=== PATIENT | female | born 1975 | race Caucasian/White ===

== ENCOUNTER 2016-12-21 13:15 | Emergency (ER) | payer SELFPAY ==
[2016-12-21] MEDS ORDERED: Sodium Chloride 0.9% 10 ML Syringe FLUSH PRN (13:31)
[2016-12-21] MEDS ORDERED: Aspirin 81 MG Tab.Chew PO ONE (13:31)
[2016-12-21] MEDS ORDERED: Sodium Chloride 0.9% 2.5 ML Syringe FLUSH PRN (13:31)
--- NOTE | 2016-12-21 13:45 | EDM.PDOC ---
ED HPI GENERAL MEDICAL PROBLEM - General Chief Complaint: Chest Pain Stated Complaint: CHEST PAIN Time Seen by Provider: 12/21/16 13:22 - History of Present Illness INITIAL COMMENTS - FREE TEXT/NARRATIVE: HISTORY AND PHYSICAL: History of present illness: The patient is a 41-year-old female was a history of hypothyroidism and depression for which she takes medications from her nurse emergency medical technician but does not see a family provider, and presents with right-sided chest pain near her armpit that radiated across to the left side while she was at rest. The patient says the pain was 7 out of 10 and it started on the right side going to the left but did not go to the lower chest or the abdomen and did not radiate to her arms or jaw. The patient states she's never had this before which concerned her but currently in the ER she has no chest pain. She's that she has some shortness of breath with it and seemed to have more pain with movement and taking a deep breath that is also gone away. She had no diaphoresis nausea lightheadedness or syncope and no abdominal complaints. She has no leg pain or swelling and has had no recent long trips. She has no social history such as tobacco use or oral contraception use and has a history of a bilateral tubal ligation. She's never had cardiac testing in the past and she has no significant family history. Patient says she's never had chest pain or shortness of breath with activities. She's been eating and drinking normally and has had no upper respiratory symptoms Review of systems: As per history of present illness and below otherwise all systems reviewed and negative. Past medical history: As per history of present illness and as reviewed below otherwise noncontributory. Surgical history: As per history of present illness and as reviewed below otherwise noncontributory. Social history: No reported history of drug or alcohol abuse. Family history: As per history of present illness and as reviewed below otherwise noncontributory. Physical exam: Gen.: Well-developed well-nourished female who is nontoxic and mildly overweight. Vital signs are stable HEENT: Atraumatic, normocephalic, negative for conjunctival pallor or scleral icterus, mucous membranes moist, throat clear, neck supple, nontender, trachea midline. Lungs: Clear to auscultation, breath sounds equal bilaterally, chest with some mild tenderness at the right upper chest wall area without defects deformities or crepitus Heart: S1S2, regular, negative for clicks, rubs, or JVD. Abdomen: Soft, nondistended, nontender. Negative for masses or hepatosplenomegaly. Negative for costovertebral tenderness. Pelvis: Stable nontender. Genitourinary: Deferred. Rectal: Deferred. Extremities: Atraumatic, negative for cords or calf pain. Neurovascular unremarkable. No pedal edema or leg asymmetry Neuro: Awake, alert, oriented. Cranial nerves II through XII unremarkable. Cerebellum unremarkable. Motor and sensory unremarkable throughout. Exam nonfocal. Diagnostics: EKG CBC CMP troponin d-dimer chest x-ray Therapeutics: IV O2 monitor aspirin I discussed with the patient all testing results which were within normal limits. When I came to discuss those results with her the patient was asleep and currently says she has actually no pain or issues. I advised follow-up in the clinic and reasons to return to the ED. Impression: Atypical chest pain stable resolved Definitive disposition and diagnosis as appropriate pending reevaluation and review of above. 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: Neurological History: Reports: Migraines Psychiatric History: Reports: Depression Endocrine/Metabolic History: Reports: Hypothyroidism - Past Surgical History HEENT Surgical History: Reports: Naso-Sinus Surgery Social & Family History - Family History Cardiac: Reports: Hypertension Psychiatric: Reports: Depression Endocrine/Metabolic: Reports: Hypothyroidism - Tobacco Use Smoking Status *Q: Never Smoker Second Hand Smoke Exposure: No - Alcohol Use Days Per Week of Alcohol Use: 0 - Recreational Drug Use Recreational Drug Use: No Drug Use in Last 12 Months: No ED ROS GENERAL - Review of Systems Review Of Systems: ROS reveals no pertinent complaints other than HPI. ED EXAM, GENERAL - Physical Exam Exam: See Below (see dictation) Course - Vital Signs Last Recorded V/S: Last Vital Signs Temp 36.5 C 12/21/16 13:15 Pulse 87 12/21/16 14:06 Resp 16 12/21/16 14:06 BP 126/64 12/21/16 14:06 Pulse Ox 98 12/21/16 14:06 - Orders/Labs/Meds Orders: Active Orders 24 hr Category Date Time Status Cardiac Monitoring [RC] . DIRECTED Care 12/21/16 13:30 Active EKG Documentation Completion [RC] STAT Care 12/21/16 13:30 Active Oxygen Therapy, ED [RC] ASDIRECTED Care 12/21/16 13:30 Active Pulse Oximetry [RC] ASDIRECTED Care 12/21/16 13:30 Active Sodium Chloride 0.9% [Saline Flush] Med 12/21/16 13:31 Active 10 ml FLUSH ASDIRECTED PRN Sodium Chloride 0.9% [Saline Flush] Med 12/21/16 13:31 Active 2.5 ml FLUSH ASDIRECTED PRN Saline Lock Insert [OM.PC] Stat Oth 12/21/16 13:30 Ordered Medication Orders Sodium Chloride (Saline Flush) 10 ml FLUSH ASDIRECTED PRN PRN Reason: Keep Vein Open Sodium Chloride (Saline Flush) 2.5 ml FLUSH ASDIRECTED PRN PRN Reason: Keep Vein Open Labs: Laboratory Tests 12/21/16 12/21/16 12/21/16 Range/Units 13:31 13:31 13:31 WBC 8.13 (4.0-11.0) K/uL RBC 4.28 L (4.30-5.90) M/uL Hgb 14.2 (12.0-16.0) g/dL Hct 40.9 (36.0-46.0) % MCV 95.6 (80.0-98.0) fL MCH 33.2 H (27.0-32.0) pg MCHC 34.7 (31.0-37.0) g/dL RDW Std Deviation 45.2 (28.0-62.0) fl RDW Coeff of Lukas 13 (11.0-15.0) % Plt Count 271 (150-400) K/uL MPV 10.40 (7.40-12.00) fL Neut % (Auto) 60.1 (48.0-80.0) % Lymph % (Auto) 30.5 (16.0-40.0) % [place] % (Auto) 5.7 (0.0-15.0) % Eos % (Auto) 3.2 (0.0-7.0) % Baso % (Auto) 0.5 (0.0-1.5) % Neut # (Auto) 4.9 (1.4-5.7) K/uL Lymph # (Auto) 2.5 H (0.6-2.4) K/uL [place] # (Auto) 0.5 (0.0-0.8) K/uL Eos # (Auto) 0.3 (0.0-0.7) K/uL Baso # (Auto) 0.0 (0.0-0.1) K/uL Nucleated RBC % 0.0 /100WBC Nucleated RBCs # 0 K/uL D-Dimer, Quantitative 0.27 (0.0-0.52) mg/LFEU Sodium 137 (136-146) mmol/L Potassium 4.0 (3.5-5.1) mmol/L Chloride 106 (98-110) mmol/L Carbon Dioxide 21 (21-31) mmol/L BUN 15 (6.0-23.0) mg/dL Creatinine 0.8 (0.6-1.5) mg/dL Est Cr Clr Drug Dosing 82.43 mL/min Estimated GFR (MDRD) > 60.0 ml/min Glucose 114 H (60-110) mg/dL Calcium 9.6 (8.8-10.8) mg/dL Total Bilirubin 0.3 (0.1-1.5) mg/dL AST 23 (5-40) IU/L ALT 31 (8-54) IU/L Alkaline Phosphatase 95 (40-150) Troponin I (0.0-0.29) NG/ML Total Protein 7.4 (6.0-8.0) g/dL Albumin 4.4 (3.5-5.0) g/dL Globulin 3.0 (2.0-3.5) g/dL Albumin/Globulin Ratio 1.5 (1.3-2.8) 12/21/16 Range/Units 13:31 WBC (4.0-11.0) K/uL RBC (4.30-5.90) M/uL Hgb (12.0-16.0) g/dL Hct (36.0-46.0) % MCV (80.0-98.0) fL MCH (27.0-32.0) pg MCHC (31.0-37.0) g/dL RDW Std Deviation (28.0-62.0) fl RDW Coeff of Lukas (11.0-15.0) % Plt Count (150-400) K/uL MPV (7.40-12.00) fL Neut % (Auto) (48.0-80.0) % Lymph % (Auto) (16.0-40.0) % [place] % (Auto) (0.0-15.0) % Eos % (Auto) (0.0-7.0) % Baso % (Auto) (0.0-1.5) % Neut # (Auto) (1.4-5.7) K/uL Lymph # (Auto) (0.6-2.4) K/uL [place] # (Auto) (0.0-0.8) K/uL Eos # (Auto) (0.0-0.7) K/uL Baso # (Auto) (0.0-0.1) K/uL Nucleated RBC % /100WBC Nucleated RBCs # K/uL D-Dimer, Quantitative (0.0-0.52) mg/LFEU Sodium (136-146) mmol/L Potassium (3.5-5.1) mmol/L Chloride (98-110) mmol/L Carbon Dioxide (21-31) mmol/L BUN (6.0-23.0) mg/dL Creatinine (0.6-1.5) mg/dL Est Cr Clr Drug Dosing mL/min Estimated GFR (MDRD) ml/min Glucose (60-110) mg/dL Calcium (8.8-10.8) mg/dL Total Bilirubin (0.1-1.5) mg/dL AST (5-40) IU/L ALT (8-54) IU/L Alkaline Phosphatase (40-150) Troponin I < 0.10 (0.0-0.29) NG/ML Total Protein (6.0-8.0) g/dL Albumin (3.5-5.0) g/dL Globulin (2.0-3.5) g/dL Albumin/Globulin Ratio (1.3-2.8) Meds: Medications Generic Name Dose Route Start Last Admin Trade Name Freq PRN Reason Stop Dose Admin Sodium Chloride 10 ml 12/21/16 13:31 Saline Flush FLUSH ASDIRECTED PRN Keep Vein Open Sodium Chloride 2.5 ml 12/21/16 13:31 Saline Flush FLUSH ASDIRECTED PRN Keep Vein Open Discontinued Medications Generic Name Dose Route Start Last Admin Trade Name Freq PRN Reason Stop Dose Admin Aspirin 324 mg 12/21/16 13:31 12/21/16 13:37 Aspirin PO 12/21/16 13:32 324 mg ONETIME ONE Administration Departure - Departure Time of Disposition: 14:35 Disposition: Home, Self-Care 01 Condition: Good Clinical Impression: Atypical chest pain - Discharge Information Referrals: PCP,None [Primary Care Provider] - Forms: ED Department Discharge Additional Instructions: The following information is given to patients seen in the emergency department who are being discharged to home. This information is to outline your options for follow-up care. We provide all patients seen in our emergency department with a follow-up referral. The need for follow-up, as well as the timing and circumstances, are variable depending upon the specifics of your emergency department visit. If you don't have a primary care physician on staff, we will provide you with a referral. We always advise you to contact your personal physician following an emergency department visit to inform them of the circumstance of the visit and for follow-up with them and/or the need for any referrals to a consulting specialist. The emergency department will also refer you to a specialist when appropriate. This referral assures that you have the opportunity for followup care with a specialist. All of these measure are taken in an effort to provide you with optimal care, which includes your followup. Under all circumstances we always encourage you to contact your private physician who remains a resource for coordinating your care. When calling for followup care, please make the office aware that this follow-up is from your recent emergency room visit. If for any reason you are refused follow-up, please contact the [facility] emergency department at and ask to speak to the emergency department charge nurse. [facility] Primary care- Internal Medicine and Family [place] [phone] Please contact the clinic for follow-up appointment as we discussed in the next few days and return to ER as needed and as discussed. Push hydration try to eat healthy meals and avoid caffeinated products. Rest and use ice or heat to the areas of discomfort if the pain returns and also [id number] Tylenol or ibuprofen. - My Orders Last 24 Hours: My Active Orders 12/21/16 13:30 Cardiac Monitoring [RC] . DIRECTED EKG Documentation Completion [RC] STAT Oxygen Therapy, ED [RC] ASDIRECTED Pulse Oximetry [RC] ASDIRECTED Saline Lock Insert [OM.PC] Stat 12/21/16 13:31 Sodium Chloride 0.9% [Saline Flush] 10 ml FLUSH ASDIRECTED PRN Sodium Chloride 0.9% [Saline Flush] 2.5 ml FLUSH ASDIRECTED PRN - Assessment/Plan Last 24 Hours: My Active Orders 12/21/16 13:30 Cardiac Monitoring [RC] . DIRECTED EKG Documentation Completion [RC] STAT Oxygen Therapy, ED [RC] ASDIRECTED Pulse Oximetry [RC] ASDIRECTED Saline Lock Insert [OM.PC] Stat 12/21/16 13:31 Sodium Chloride 0.9% [Saline Flush] 10 ml FLUSH ASDIRECTED PRN Sodium Chloride 0.9% [Saline Flush] 2.5 ml FLUSH ASDIRECTED PRN
[2016-12-21 14:04] LABS: CHLORIDE,CL 106 mmol/L (98-110); SODIUM,NA 137 mmol/L (136-146)
--- NOTE | 2016-12-21 14:07 | CR ---
EXAMINATION: Portable chest radiograph. HISTORY: Shortness of breath. FINDINGS: The trachea is midline. The cardiomediastinal silhouette is within normal limits. No pulmonary infil trates, effusions or pneumothorax. Osseous structures appear unremarkable. IMPRESSION: No acute cardiopulmonary process.
[2016-12-21 14:47] VITALS: BP 122/80
== END 2016-12-21 14:43 | disposition home or self-care (01) ==
LOC: MW.ED 13:15
DX: R07.89 Other chest pain (principal); F32.9 Major depressive disorder, single episode, unspecified; E03.9 Hypothyroidism, unspecified; Z98.890 Other specified postprocedural states; Z79.899 Other long term (current) drug therapy
CPT/HCPCS: 36415; 71010; 80053; 84484; 85025; 85379; 93005; 99285; A9270; 99282

== ENCOUNTER 2017-03-03 18:55 | Emergency (ER) | payer SELFPAY ==
--- NOTE | 2017-03-03 19:35 | EDM.PDOC ---
ED HPI GENERAL MEDICAL PROBLEM - General Chief Complaint: ENT Problem Stated Complaint: SORE THROAT Time Seen by Provider: 03/03/17 19:25 Source of Information: Reports: Patient History Limitations: Reports: No Limitations - History of Present Illness INITIAL COMMENTS - FREE TEXT/NARRATIVE: HISTORY AND PHYSICAL: History of present illness: Patient is a 41-year-old female who presents to the emergency room today with complaints of a sore throat, dry cough, subjective fever, chills and losing her voice. States her symptoms started approximately 3 days ago progressively getting worse and losing her voice this morning. She has not had a recorded temp but states I feel warm and has chills. Patient has a past medical history of hypothyroidism and depression. She reports both are managed and controlled well. Review of systems: As per history of present illness and below otherwise all systems reviewed and negative. Past medical history: As per history of present illness and as reviewed below otherwise noncontributory. Surgical history: As per history of present illness and as reviewed below otherwise noncontributory. Social history: No reported history of drug or alcohol abuse. Family history: As per history of present illness and as reviewed below otherwise noncontributory. Physical exam: Gen.: Well-developed and well-nourished 41-year-old female. Able to speak in full sentences without shortness of breath. Alert and oriented. HEENT: Atraumatic, normocephalic, pupils reactive, negative for conjunctival pallor or scleral icterus, mucous membranes moist, erythema noted to the posterior oropharynx without exudate, no lymphadenopathy, normal TMs bilaterally , neck supple, nontender, trachea midline. Lungs: Clear to auscultation, breath sounds equal bilaterally, chest nontender. Heart: S1S2, regular rate and rhythm Abdomen: Soft, nondistended, nontender. Negative for masses or hepatosplenomegaly. Negative for costovertebral tenderness. Pelvis: Stable nontender. Genitourinary: Deferred. Rectal: Deferred. Extremities: Atraumatic, moves all per self. Neurovascular unremarkable. Neuro: Awake, alert, oriented. Cranial nerves II through XII unremarkable. Cerebellum unremarkable. Motor and sensory unremarkable throughout. Exam nonfocal. Diagnostics: Rapid strep Therapeutics: [] Impression: Pharyngitis Plan: 1. These take your medications as prescribed, the Medrol Dose Juan José and Z-pack. 2. You have been prescribed Phenergan with codeine to help alleviate your throat discomfort and cough. As we discussed this medication can cause drowsiness and do not take it while needing to function at work or drive. Please save this for nighttime use. 3. Salt water gargles may be beneficial. Please do this up to 3 times daily. Please get a new toothbrush at the end of your antibiotic regiment. 4. Follow-up with your primary care provider in the next 1-2 days. Return to the ED as needed as discussed Definitive disposition and diagnosis as appropriate pending reevaluation and review of above. 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 throat Pain Score (Numeric/FACES): 3 - Related Data Allergies Allergy/AdvReac Type Severity Reaction Status Date / Time No Known Allergies Allergy Verified 03/03/17 19:18 Home Meds: Home Meds Levothyroxine 75 mcg PO ACBRK 01/04/14 [History] Escitalopram [Lexapro] 0.5 tab PO DAILY 10/19/14 [History] Past Medical History - Past Health History Medical/Surgical History: Denies Medical/Surgical History HEENT History: Reports: None Cardiovascular History: Reports: None Respiratory History: Reports: None Gastrointestinal History: Reports: Irritable Bowel Syndrome Genitourinary History: Reports: None 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: Musculoskeletal History: Reports: None Neurological History: Reports: Migraines Psychiatric History: Reports: Depression Endocrine/Metabolic History: Reports: Hypothyroidism Hematologic History: Reports: None Immunologic History: Reports: None Oncologic (Cancer) History: Reports: None Dermatologic History: Reports: None - Infectious Disease History Infectious Disease History: Reports: None - Past Surgical History HEENT Surgical History: Reports: Naso-Sinus Surgery Female Surgical History: Reports: Tubal Ligation Social & Family History - Family History Family Medical History: Noncontributory Cardiac: Reports: Hypertension Psychiatric: Reports: Depression Endocrine/Metabolic: Reports: Hypothyroidism - Tobacco Use Smoking Status *Q: Never Smoker Second Hand Smoke Exposure: No - Caffeine Use Caffeine Use: Reports: Soda - Alcohol Use Days Per Week of Alcohol Use: 0 - Recreational Drug Use Recreational Drug Use: No Drug Use in Last 12 Months: No ED ROS ENT - Review of Systems Review Of Systems: ROS reveals no pertinent complaints other than HPI. ED EXAM, ENT - Physical Exam Exam: See Below (See dictation) Course - Vital Signs Last Recorded V/S: Last Vital Signs Temp 36.8 C 03/03/17 19:05 Pulse 73 03/03/17 19:05 Resp 18 03/03/17 19:05 BP 142/79 H 03/03/17 19:05 Pulse Ox 98 03/03/17 19:05 - Orders/Labs/Meds Orders: Active Orders 24 hr Category Date Time Status CULTURE STREP A CONFIRMATION [] Stat Lab 03/03/17 19:43 Results STREP SCRN A RAPID W CULT CONF [RM] Stat Lab 03/03/17 19:43 Results Departure - Departure Time of Disposition: 20:16 Disposition: Home, Self-Care 01 Clinical Impression: Pharyngitis Qualifiers: Pharyngitis/tonsillitis etiology: unspecified etiology Qualified Code(s): J02.9 - Acute pharyngitis, unspecified - Discharge Information Referrals: PCP,None [Primary Care Provider] - Forms: ED Department Discharge Additional Instructions: My general discharge The following information is given to patients seen in the emergency department who are being discharged to home. This information is to outline your options for follow-up care. We provide all patients seen in our emergency department with a follow-up referral. The need for follow-up, as well as the timing and circumstances, are variable depending upon the specifics of your emergency department visit. If you don't have a primary care physician on staff, we will provide you with a referral. We always advise you to contact your personal physician following an emergency department visit to inform them of the circumstance of the visit and for follow-up with them and/or the need for any referrals to a consulting specialist. The emergency department will also refer you to a specialist when appropriate. This referral assures that you have the opportunity for follow-up care with a specialist. All of these measure are taken in an effort to provide you with optimal care, which includes your follow-up. Under all circumstances we always encourage you to contact your private physician who remains a resource for coordinating your care. When calling for follow-up care, please make the office aware that this follow-up is from your recent emergency room visit. If for any reason you are refused follow-up, please contact the [facility] Emergency Department at and asked to speak to the emergency department charge nurse. [facility] [address] [place] [id number] 1. These take your medications as prescribed, the Medrol Dose Juan José and Z-pack. 2. You have been prescribed Phenergan with codeine to help alleviate your throat discomfort and cough. As we discussed this medication can cause drowsiness and do not take it while needing to function at work or drive. Please save this for nighttime use. 3. Salt water gargles may be beneficial. Please do this up to 3 times daily. Please get a new toothbrush at the end of your antibiotic regiment. 4. Follow-up with your primary care provider in the next 1-2 days. Return to the ED as needed as discussed - My Orders Last 24 Hours: My Active Orders 03/03/17 19:43 CULTURE STREP A CONFIRMATION [RM] Stat STREP SCRN A RAPID W CULT CONF [RM] Stat - Assessment/Plan Last 24 Hours: My Active Orders 03/03/17 19:43 CULTURE STREP A CONFIRMATION [RM] Stat STREP SCRN A RAPID W CULT CONF [RM] Stat
[2017-03-03 20:26] VITALS: BP 137/74
== END 2017-03-03 20:28 | disposition home or self-care (01) ==
LOC: MW.ED 18:55
DX: J02.9 Acute pharyngitis, unspecified (principal); F32.9 Major depressive disorder, single episode, unspecified; E03.9 Hypothyroidism, unspecified; Z98.51 Tubal ligation status; Z98.890 Other specified postprocedural states; Z79.899 Other long term (current) drug therapy
CPT/HCPCS: 87081; 87880; 99282; 99283

== ENCOUNTER 2017-06-03 22:30 | Emergency (ER) | payer SELFPAY ==
[2017-06-03] MEDS ORDERED: Aspirin 81 MG Tab.Chew PO ONE (22:46)
[2017-06-03] MEDS ORDERED: Sodium Chloride 0.9% 10 ML Syringe FLUSH PRN (22:46)
[2017-06-03] MEDS ORDERED: Sodium Chloride 0.9% 2.5 ML Syringe FLUSH PRN (22:46)
--- NOTE | 2017-06-03 23:00 | EDM.PDOC ---
ED HPI GENERAL MEDICAL PROBLEM - General Chief Complaint: Chest Pain Stated Complaint: PT HAS CHEST PAINS Time Seen by Provider: 06/03/17 22:40 Source of Information: Reports: Patient History Limitations: Reports: No Limitations - History of Present Illness INITIAL COMMENTS - FREE TEXT/NARRATIVE: History of present illness: 41-year-old female presenting to emergency room by EMS for chest pain with no previous history of cardiopulmonary disease. Patient states that she began to have chest pain at approximately 1900 this evening. It was substernal without radiation worse when she pushed on her chest. She had no associated nausea, vomiting, or diaphoresis. The pain lasted for approximately 45 minutes and went away on its own. Since then she has had small sharp chest pains that last only a few seconds. She has never had similar symptoms in the past. She denies any history of cardiopulmonary disease. She was coughing some earlier today but denies sputum production. She denies any palpitations, shortness of breath, syncopal episodes, or focal neurologic deficits. She only takes medications for her "mood". Has never smoked and is a nondrinker. Review of systems: As per history of present illness and below otherwise all systems reviewed and negative. Past medical history: As per history of present illness and as reviewed below otherwise noncontributory. Surgical history: As per history of present illness and as reviewed below otherwise noncontributory. Social history: No reported history of drug or alcohol abuse. Family history: As per history of present illness and as reviewed below otherwise noncontributory. Physical exam: General: Well developed well nourished, Alert and Orientated x3, In no acute distress HEENT: Atraumatic, normocephalic, pupils reactive, negative for conjunctival pallor or scleral icterus, mucous membranes moist, throat clear, neck supple, nontender, trachea midline. Lungs: Clear to auscultation, breath sounds equal bilaterally, chest nontender. Heart: S1S2, regular, negative for clicks, rubs, or JVD. Chest pain is reproducible with deep palpation. Abdomen: Soft, nondistended, nontender. Negative for masses or hepatosplenomegaly. Negative for costovertebral tenderness. Pelvis: Stable nontender. Genitourinary: Deferred. Rectal: Deferred. Extremities: Atraumatic, negative for cords or calf pain. Neurovascular unremarkable. Neuro: Awake, alert, oriented. Cranial nerves II through XII unremarkable. Cerebellum unremarkable. Motor and sensory unremarkable throughout. Exam nonfocal. Diagnostics: CBC, CMP, troponin, UA - unremarkable EKG- NSR CXR- no acute intrathoracic abnormality Flu-Negative Therapeutics: IV NS 1 L Toradol 30mg Ativan 1 mg Impression: Atypical chest pain Costochondritis Patient continued to have some chest pain without radiation while she was here in the emergency department. 30 mg of Toradol did not relieve this pain but the pain was completely reproducible with palpation. Patient was given Ativan 1 mg IV which completely resolved her chest pain. Patient does have a history of anxiety/depression. May be a combination of costochondritis with anxiety related. All labs were normal including troponin. ECG was NSR with no signs of acute ischemia. I talked to the patient at length about atypical chest pain as well as follow-up with her primary care physician. She does have a scheduled appointment on the of this month. Instructed her to come in immediately to emergency department if she has any return of her symptoms. Definitive disposition and diagnosis as appropriate pending reevaluation and review of above Left Chest Pain Score (Numeric/FACES): 5 - Related Data Allergies Allergy/AdvReac Type Severity Reaction Status Date / Time No Known Allergies Allergy Verified 06/03/17 22:32 Home Meds: Home Meds Levothyroxine 75 mcg PO ACBRK 01/04/14 [History] Escitalopram [Lexapro] 0.5 tab PO DAILY 10/19/14 [History] Past Medical History - Past Health History Medical/Surgical History: Denies Medical/Surgical History HEENT History: Reports: None Cardiovascular History: Reports: None Respiratory History: Reports: None Gastrointestinal History: Reports: Irritable Bowel Syndrome Genitourinary History: Reports: None SKETCHER History: Reports: , Other (See Below) Musculoskeletal History: Reports: None Neurological History: Reports: Migraines Psychiatric History: Reports: Depression Endocrine/Metabolic History: Reports: Hypothyroidism Hematologic History: Reports: None Immunologic History: Reports: None Oncologic (Cancer) History: Reports: None Dermatologic History: Reports: None - Infectious Disease History Infectious Disease History: Reports: None - Past Surgical History HEENT Surgical History: Reports: Naso-Sinus Surgery Female Surgical History: Reports: Tubal Ligation Social & Family History - Family History Family Medical History: Noncontributory Cardiac: Reports: Hypertension Psychiatric: Reports: Depression Endocrine/Metabolic: Reports: Hypothyroidism - Tobacco Use Smoking Status *Q: Never Smoker Second Hand Smoke Exposure: No - Caffeine Use Caffeine Use: Reports: Soda - Alcohol Use Days Per Week of Alcohol Use: 0 - Recreational Drug Use Recreational Drug Use: No Drug Use in Last 12 Months: No ED ROS GENERAL - Review of Systems Review Of Systems: See Below ED EXAM, GENERAL - Physical Exam Exam: See Below Course - Vital Signs Last Recorded V/S: Last Vital Signs Temp 98.8 F 06/03/17 22:33 Pulse 90 06/04/17 00:57 Resp 18 06/03/17 22:33 BP 145/91 H 06/04/17 00:57 Pulse Ox 96 06/04/17 00:57 - Orders/Labs/Meds Orders: Active Orders 24 hr Category Date Time Status Cardiac Monitoring [RC] . DIRECTED Care 06/03/17 22:46 Active EKG Documentation Completion [RC] STAT Care 06/03/17 22:46 Active Oxygen Therapy [RC] ASDIRECTED Care 06/03/17 22:46 Active Pulse Oximetry [RC] ASDIRECTED Care 06/03/17 22:46 Active Chest 1V Frontal [CR] Stat Exams 06/03/17 22:46 Taken Sodium Chloride 0.9% [Saline Flush] Med 06/03/17 22:46 Active 10 ml FLUSH ASDIRECTED PRN Sodium Chloride 0.9% [Saline Flush] Med 06/03/17 22:46 Active 2.5 ml FLUSH ASDIRECTED PRN Saline Lock Insert [OM.PC] Stat Oth 06/03/17 22:46 Ordered Medication Orders Sodium Chloride (Saline Flush) 10 ml FLUSH ASDIRECTED PRN PRN Reason: Keep Vein Open Sodium Chloride (Saline Flush) 2.5 ml FLUSH ASDIRECTED PRN PRN Reason: Keep Vein Open Labs: Laboratory Tests 06/03/17 06/03/17 06/03/17 Range/Units 22:46 22:46 22:46 WBC 8.54 (4.0-11.0) K/uL RBC 3.94 L (4.30-5.90) M/uL Hgb 13.0 (12.0-16.0) g/dL Hct 37.7 (36.0-46.0) % MCV 95.7 (80.0-98.0) fL MCH 33.0 H (27.0-32.0) pg MCHC 34.5 (31.0-37.0) g/dL RDW Std Deviation 43.3 (28.0-62.0) fl RDW Coeff of Lukas 13 (11.0-15.0) % Plt Count 255 (150-400) K/uL MPV 9.80 (7.40-12.00) fL Neut % (Auto) 59.3 (48.0-80.0) % Lymph % (Auto) 30.3 (16.0-40.0) % [place] % (Auto) 5.6 (0.0-15.0) % Eos % (Auto) 4.3 (0.0-7.0) % Baso % (Auto) 0.5 (0.0-1.5) % Neut # (Auto) 5.1 (1.4-5.7) K/uL Lymph # (Auto) 2.6 H (0.6-2.4) K/uL [place] # (Auto) 0.5 (0.0-0.8) K/uL Eos # (Auto) 0.4 (0.0-0.7) K/uL Baso # (Auto) 0.0 (0.0-0.1) K/uL Nucleated RBC % 0.0 /100WBC Nucleated RBCs # 0 K/uL INR 1.01 (0.86-1.11) Sodium 139 (136-146) mmol/L Potassium 3.6 (3.5-5.1) mmol/L Chloride 108 (98-110) mmol/L Carbon Dioxide 21 (21-31) mmol/L BUN 13 (6.0-23.0) mg/dL Creatinine 0.7 (0.6-1.5) mg/dL Est Cr Clr Drug Dosing TNP Estimated GFR (MDRD) > 60.0 ml/min Glucose 119 H (60-110) mg/dL Calcium 9.4 (8.8-10.8) mg/dL Total Bilirubin 0.2 (0.1-1.5) mg/dL AST 18 (5-40) IU/L ALT 21 (8-54) IU/L Alkaline Phosphatase 85 (40-150) Troponin I < 0.10 (0.0-0.29) NG/ML Total Protein 6.8 (6.0-8.0) g/dL Albumin 4.0 (3.5-5.0) g/dL Globulin 2.8 (2.0-3.5) g/dL Albumin/Globulin Ratio 1.4 (1.3-2.8) Amylase 56 (10-90) U/L Lipase 49 (7-80) U/L Urine Color Urine Appearance Urine pH (5.0-8.0) Ur Specific Winters (1.001-1.035) Urine Protein (NEGATIVE) mg/dL Urine Glucose (UA) (NEGATIVE) mg/dL Urine Ketones (NEGATIVE) mg/dL Urine Occult Blood (NEGATIVE) Urine Nitrite (NEGATIVE) Urine Bilirubin (NEGATIVE) Urine Urobilinogen (<2.0) EU/dL Ur Leukocyte Esterase (NEGATIVE) Urine RBC (0-2/HPF) Urine WBC (0-5/HPF) Ur Epithelial Cells (NONE-FEW) Urine Bacteria (NEGATIVE) Urine Mucus (NONE-MOD) Urine HCG, Qual (NEGATIVE) 06/03/17 06/03/17 Range/Units 22:51 22:51 WBC (4.0-11.0) K/uL RBC (4.30-5.90) M/uL Hgb (12.0-16.0) g/dL Hct (36.0-46.0) % MCV (80.0-98.0) fL MCH (27.0-32.0) pg MCHC (31.0-37.0) g/dL RDW Std Deviation (28.0-62.0) fl RDW Coeff of Lukas (11.0-15.0) % Plt Count (150-400) K/uL MPV (7.40-12.00) fL Neut % (Auto) (48.0-80.0) % Lymph % (Auto) (16.0-40.0) % [place] % (Auto) (0.0-15.0) % Eos % (Auto) (0.0-7.0) % Baso % (Auto) (0.0-1.5) % Neut # (Auto) (1.4-5.7) K/uL Lymph # (Auto) (0.6-2.4) K/uL [place] # (Auto) (0.0-0.8) K/uL Eos # (Auto) (0.0-0.7) K/uL Baso # (Auto) (0.0-0.1) K/uL Nucleated RBC % /100WBC Nucleated RBCs # K/uL INR (0.86-1.11) Sodium (136-146) mmol/L Potassium (3.5-5.1) mmol/L Chloride (98-110) mmol/L Carbon Dioxide (21-31) mmol/L BUN (6.0-23.0) mg/dL Creatinine (0.6-1.5) mg/dL Est Cr Clr Drug Dosing Estimated GFR (MDRD) ml/min Glucose (60-110) mg/dL Calcium (8.8-10.8) mg/dL Total Bilirubin (0.1-1.5) mg/dL AST (5-40) IU/L ALT (8-54) IU/L Alkaline Phosphatase (40-150) Troponin I (0.0-0.29) NG/ML Total Protein (6.0-8.0) g/dL Albumin (3.5-5.0) g/dL Globulin (2.0-3.5) g/dL Albumin/Globulin Ratio (1.3-2.8) Amylase (10-90) U/L Lipase (7-80) U/L Urine Color YELLOW Urine Appearance CLEAR Urine pH 6.0 (5.0-8.0) Ur Specific Win[place] >= 1.030 (1.001-1.035) Urine Protein NEGATIVE (NEGATIVE) mg/dL Urine Glucose (UA) NEGATIVE (NEGATIVE) mg/dL Urine Ketones NEGATIVE (NEGATIVE) mg/dL Urine Occult Blood MODERATE (NEGATIVE) Urine Nitrite NEGATIVE (NEGATIVE) Urine Bilirubin NEGATIVE (NEGATIVE) Urine Urobilinogen 0.2 (<2.0) EU/dL Ur Leukocyte Esterase NEGATIVE (NEGATIVE) Urine RBC 1-4 (0-2/HPF) Urine WBC 0-2 (0-5/HPF) Ur Epithelial Cells FEW (NONE-FEW) Urine Bacteria FEW (NEGATIVE) Urine Mucus LIGHT (NONE-MOD) Urine HCG, Qual NEGATIVE (NEGATIVE) Meds: Medications Generic Name Dose Route Start Last Admin Trade Name Freq PRN Reason Stop Dose Admin Sodium Chloride 10 ml 06/03/17 22:46 Saline Flush FLUSH ASDIRECTED PRN Keep Vein Open Sodium Chloride 2.5 ml 06/03/17 22:46 Saline Flush FLUSH ASDIRECTED PRN Keep Vein Open Discontinued Medications Generic Name Dose Route Start Last Admin Trade Name Kwesi PRN Reason Stop Dose Admin Amoxicillin 500 mg 06/04/17 00:54 Amoxil 250 Mg/5 Ml Susp PO 06/04/17 00:55 NOW STA Aspirin 324 mg 06/03/17 22:46 Aspirin PO 06/03/17 22:47 ONETIME ONE Ketorolac Tromethamine 30 mg 06/03/17 23:18 06/03/17 23:24 Toradol IVPUSH 06/03/17 23:19 30 mg ONETIME ONE Administration Lorazepam 1 mg 06/04/17 00:11 06/04/17 00:41 Ativan IVPUSH 06/04/17 00:12 1 mg ONETIME ONE Administration Departure - Departure Time of Disposition: 01:05 Disposition: Home, Self-Care 01 Clinical Impression: Atypical chest pain, Costochondritis, acute - Discharge Information Referrals: PCP,None [Primary Care Provider] - Forms: ED Department Discharge - My Orders Last 24 Hours: My Active Orders 06/03/17 22:46 Cardiac Monitoring [RC] . DIRECTED EKG Documentation Completion [RC] STAT Oxygen Therapy [RC] ASDIRECTED Pulse Oximetry [RC] ASDIRECTED Chest 1V Frontal [CR] Stat Sodium Chloride 0.9% [Saline Flush] 10 ml FLUSH ASDIRECTED PRN Sodium Chloride 0.9% [Saline Flush] 2.5 ml FLUSH ASDIRECTED PRN Saline Lock Insert [OM.PC] Stat - Assessment/Plan Last 24 Hours: My Active Orders 06/03/17 22:46 Cardiac Monitoring [RC] . DIRECTED EKG Documentation Completion [RC] STAT Oxygen Therapy [RC] ASDIRECTED Pulse Oximetry [RC] ASDIRECTED Chest 1V Frontal [CR] Stat Sodium Chloride 0.9% [Saline Flush] 10 ml FLUSH ASDIRECTED PRN Sodium Chloride 0.9% [Saline Flush] 2.5 ml FLUSH ASDIRECTED PRN Saline Lock Insert [OM.PC] Stat
[2017-06-03 23:14] LABS: CHLORIDE,CL 108 mmol/L (98-110); SODIUM,NA 139 mmol/L (136-146)
[2017-06-03] MEDS ORDERED: Ketorolac 30 MG/ML SDV IVPUSH ONE (23:18)
[2017-06-04] MEDS ORDERED: LORazepam 2 MG/ML MDV IVPUSH ONE (00:11)
[2017-06-04 01:50] VITALS: BP 128/82
[2017-06-04] MEDS: Amoxicillin 250 MG/5 ML Susp 150 ML Bottle PO STA ×2 (02:13→02:16)
--- NOTE | 2017-06-04 19:49 | CR ---
EXAM DATE: 06/03/17 PATIENT'S AGE: 41 Patient: JESUS COLÓN Facility: [place], [place] Site . Site : 1975 Study: XRay Chest [id number] 10:57:10 PM Ordering Physician: Grant Thayer Final Report: INDICATION: chest pain CHEST, ONE VIEW An AP radiograph of the chest was performed. Comparison: 12/21/2016. The lungs appear clear and no pleural effusions are identified. There is mild elevation of the left diaphragm. The cardiomediastinal silhouette and pulmonary vasculature appear normal, as do the visualized bones. IMPRESSION: No acute intrathoracic abnormality identified. SANDRA CARBALLO MD [employer] [facility] Dictated by: Meek Carballo MD @ 06/03/2017 23:03:01 (Electronic Signature) Report Signed by Proxy. [facility] HOSPITALMeghan
== END 2017-06-04 01:47 | disposition home or self-care (01) ==
LOC: MW.ED 22:30
DX: M94.0 Chondrocostal junction syndrome [Tietze] (principal); F32.9 Major depressive disorder, single episode, unspecified; E03.9 Hypothyroidism, unspecified; Z79.899 Other long term (current) drug therapy
CPT/HCPCS: 36415; 71045; 80053; 81001; 81025; 82150; 83690; 84484; 85025; 85610; 87804; 93005; 96374; 96375; 99285; J1885; J2060; 99284

== ENCOUNTER 2017-06-30 22:33 | Emergency (ER) | payer SELFPAY ==
[2017-06-30] MEDS ORDERED: Ketorolac 60 MG/2 ML SDV IM ONE (22:45)
[2017-06-30 22:46] VITALS: BP 146/94
--- NOTE | 2017-06-30 22:48 | EDM.PDOC ---
ED HPI GENERAL MEDICAL PROBLEM - General Chief Complaint: Lower Extremity Injury/Pain Stated Complaint: RIGHT KNEE PAIN Time Seen by Provider: 06/30/17 22:39 - History of Present Illness INITIAL COMMENTS - FREE TEXT/NARRATIVE: HISTORY AND PHYSICAL: History of present illness: The patient is a 41-year-old female who presents with a four-day history of revealed right knee pain that started gradually and she does not recall any specific injury to the area. Patient has had no systemic complaints of fever chills chest pain or shortness of breath and denies any specific trauma to the area. She has no distal leg ankle or foot pain and no proximal thigh or hip pain. She says the bones of the knee do not hurt she has not noticed any swelling there she points to the medial aspect of the knee extending to the distal inner thigh area as the site of the pain. She has used [id number] ibuprofen but did not take any today Review of systems: As per history of present illness and below otherwise all systems reviewed and negative. Past medical history: As per history of present illness and as reviewed below otherwise noncontributory. Surgical history: As per history of present illness and as reviewed below otherwise noncontributory. Social history: No reported history of drug or alcohol abuse. Family history: As per history of present illness and as reviewed below otherwise noncontributory. Physical exam: Gen.: Well-developed overweight female who is nontoxic and vital signs have been reviewed by me HEENT: Atraumatic, normocephalic, negative for conjunctival pallor or scleral icterus, mucous membranes moist, throat clear, neck supple, nontender, trachea midline. Lungs: Clear to auscultation, breath sounds equal bilaterally, chest nontender. Heart: S1S2, regular rate and rhythm no overt murmurs Abdomen: Soft, nondistended, nontender. NABS. Pelvis: Stable nontender. No lateral hip tenderness on the right Genitourinary: Deferred. Rectal: Deferred. Extremities: Atraumatic full range of motion of all extremities and there are no palpable bony deformities most specifically in the right knee. At the right knee there is no joint effusion soft tissue swelling warmth or erythema. The patient has some mild tenderness to palpation of the medial thigh. The patient is able to flex and extend at the knee without deficits The patient has multiple varicosities on her legs. The legs are, negative for cords or calf pain. The right calf itself is not specifically tender nor is there tenderness in the popliteal fossa. Is no streaking ecchymosis or erythema in this region of her discomfort. Neurovascular unremarkable. Neuro: Awake, alert, oriented. Cranial nerves II through XII unremarkable. Cerebellum unremarkable. Motor and sensory unremarkable throughout. Exam nonfocal. Diagnostics: Right knee x-ray venous Doppler right leg Therapeutics: Toradol Charles and crutches I discussed with the patient the negative testing results for DVT and any bony abnormalities. I reinforced that this could be a phlebitis that's causing her pain because she has so many varicosities or it could be musculoskeletal secondary to insertion of the medial head of the quadriceps. I will recommend follow-up with her provider in the clinic, and she tells me she has an appointment on Sunday in our clinic. I recommended ice elevation and reduction of weightbearing and wearing an Charles bandage for support. I also discussed with her going forward getting support hose to prevent progression of her varicose veins and to prevent further pain with them Impression: Right medial soft tissue knee pain, musculoskeletal versus phlebitis Definitive disposition and diagnosis as appropriate pending reevaluation and review of above. right knee Pain Score (Numeric/FACES): 8 - Related Data Allergies Allergy/AdvReac Type Severity Reaction Status Date / Time No Known Allergies Allergy Verified 06/03/17 22:32 Home Meds: Home Meds Levothyroxine 75 mcg PO ACBRK 01/04/14 [History] Escitalopram [Lexapro] 0.5 tab PO DAILY 10/19/14 [History] Past Medical History - Past Health History Medical/Surgical History: Denies Medical/Surgical History HEENT History: Reports: None Cardiovascular History: Reports: None Respiratory History: Reports: None Gastrointestinal History: Reports: Irritable Bowel Syndrome Genitourinary History: Reports: None BEFORE SCHOOL History: Reports: Musculoskeletal History: Reports: None Neurological History: Reports: Migraines Psychiatric History: Reports: Depression Endocrine/Metabolic History: Reports: Hypothyroidism Hematologic History: Reports: None Immunologic History: Reports: None Oncologic (Cancer) History: Reports: None Dermatologic History: Reports: None - Infectious Disease History Infectious Disease History: Reports: None - Past Surgical History HEENT Surgical History: Reports: Naso-Sinus Surgery Female Surgical History: Reports: Tubal Ligation Social & Family History - Family History Family Medical History: Noncontributory Cardiac: Reports: Hypertension Psychiatric: Reports: Depression Endocrine/Metabolic: Reports: Hypothyroidism - Tobacco Use Smoking Status *Q: Never Smoker Second Hand Smoke Exposure: No - Caffeine Use Caffeine Use: Reports: Soda - Alcohol Use Days Per Week of Alcohol Use: 0 - Recreational Drug Use Recreational Drug Use: No Drug Use in Last 12 Months: No Review of Systems - Review of Systems Review Of Systems: ROS reveals no pertinent complaints other than HPI. ED EXAM, GENERAL - Physical Exam Exam: See Below (See dictation) Course - Vital Signs Last Recorded V/S: Last Vital Signs Temp 37.1 C 06/30/17 22:42 Pulse 96 06/30/17 22:42 Resp 22 H 06/30/17 22:42 BP 146/94 H 06/30/17 22:42 Pulse Ox 97 06/30/17 22:42 - Orders/Labs/Meds Orders: Active Orders 24 hr Category Date Time Status Knee 3V Rt [CR] Stat Exams 06/30/17 22:45 Taken Venous Doppler Lwr Ext Rt [US] Stat Exams 06/30/17 22:45 Taken DME for Discharge [COMM] Stat Oth 07/01/17 00:07 Ordered Meds: Medications Discontinued Medications Generic Name Dose Route Start Last Admin Trade Name Kwesi PRN Reason Stop Dose Admin Ketorolac Tromethamine 60 mg 06/30/17 22:45 06/30/17 22:54 Toradol IM 06/30/17 22:46 60 mg ONETIME ONE Administration Departure - Departure Time of Disposition: 00:09 Disposition: Home, Self-Care 01 Condition: Good Clinical Impression: Musculoskeletal pain of extremity, Phlebitis - Discharge Information Referrals: PCP,None [Primary Care Provider] - Forms: ED Department Discharge Additional Instructions: The following information is given to patients seen in the emergency department who are being discharged to home. This information is to outline your options for follow-up care. We provide all patients seen in our emergency department with a follow-up referral. The need for follow-up, as well as the timing and circumstances, are variable depending upon the specifics of your emergency department visit. If you don't have a primary care physician on staff, we will provide you with a referral. We always advise you to contact your personal physician following an emergency department visit to inform them of the circumstance of the visit and for follow-up with them and/or the need for any referrals to a consulting specialist. The emergency department will also refer you to a specialist when appropriate. This referral assures that you have the opportunity for followup care with a specialist. All of these measure are taken in an effort to provide you with optimal care, which includes your followup. Under all circumstances we always encourage you to contact your private physician who remains a resource for coordinating your care. When calling for followup care, please make the office aware that this follow-up is from your recent emergency room visit. If for any reason you are refused follow-up, please contact the [facility] emergency department at and ask to speak to the emergency department charge nurse. [facility] Primary care- Internal Medicine and Family [address] [address] Ice and elevate the leg as much as possible and try not to weight-bear. Use Charles bandage at all times for support until you're followed up but remove at bedtime. Please use medications as prescribed from [facility]. Please keep your appointment this week with her provider in the clinic for reevaluation and further care and return to ER as needed and as discussed You have been given Keflex, Ultram, and diclofenac from [facility] - My Orders Last 24 Hours: My Active Orders 06/30/17 22:45 Knee 3V Rt [CR] Stat Venous Doppler Lwr Ext Rt [US] Stat 07/01/17 00:07 DME for Discharge [COMM] Stat - Assessment/Plan Last 24 Hours: My Active Orders 06/30/17 22:45 Knee 3V Rt [CR] Stat Venous Doppler Lwr Ext Rt [US] Stat 07/01/17 00:07 DME for Discharge [COMM] Stat
--- NOTE | 2017-07-02 13:51 | CR ---
EXAM DATE: 06/30/17 PATIENT'S AGE: 41 Patient: JESUS COLÓN Facility: [place], [place] Site . Site : 1975 Study: XRay Knee Right [id number]/[id number]/2018 11:24:05 PM Ordering Physician: Lon Hardy Final Report: INDICATION: pain TECHNIQUE: Three views of the right knee COMPARISON: None FINDINGS: Bones: No fractures or bone lesions. Joint spaces: Unremarkable. Soft tissues: Unremarkable. IMPRESSION: No acute bony abnormality Dictated by Dio Cox MD @ 06/30/2017 11:32:17 PM Dictated by: Dio Cox MD @ 06/30/2017 23:32:23 (Electronic Signature) Report Signed by Proxy. JOSH
--- NOTE | 2017-07-02 13:52 | US ---
EXAM DATE: 06/30/17 PATIENT'S AGE: 41 Patient: JESUS COLÓN Facility: [place], [place] Site . Site : 1975 Study: US Extremity Venous RIGHT [id number] 11:44:41 PM Ordering Physician: Lon Hardy Final Report: INDICATION: RT KNEE PAIN TECHNIQUE: Ultrasound venous duplex lower right extremity. Compression venous exam was performed using rivas-scale, color Doppler, and spectral Doppler imaging. COMPARISON: None FINDINGS: Sonographic imaging demonstrates the right common femoral, deep femoral, superficial femoral, popliteal, posterior tibial and greater saphenous and the contralateral left common femoral veins to be fully compressible with normal color Doppler blood flow. IMPRESSION: No evidence of deep venous thrombosis within the right lower extremity Dictated by Dio Cox MD @ 07/01/2017 12:00:51 AM Dictated by: Dio Cox MD @ 07/01/2017 00:01:00 (Electronic Signature) Report Signed by Proxy. JOSH
== END 2017-07-01 00:27 | disposition home or self-care (01) ==
LOC: MW.ED 22:33
DX: I80.3 Phlebitis and thrombophlebitis of lower extremities, unspecified (principal); E03.9 Hypothyroidism, unspecified; F32.9 Major depressive disorder, single episode, unspecified; Z79.899 Other long term (current) drug therapy
CPT/HCPCS: 73562; 93971; 96372; 99284; J1885; 99283

== ENCOUNTER 2018-06-28 19:34 | Emergency (ER) | payer BC ==
[2018-06-28 19:47] VITALS: BP 134/93
--- NOTE | 2018-06-28 20:04 | EDM.PDOC ---
ED HPI GENERAL MEDICAL PROBLEM - General Chief Complaint: ENT Problem Stated Complaint: FLU Time Seen by Provider: 06/28/18 19:56 - History of Present Illness INITIAL COMMENTS - FREE TEXT/NARRATIVE: HISTORY AND PHYSICAL: History of present illness: The patient is a 42-year-old female with no pulmonary history and has had a bilateral tubal ligation and presents with complaints of 2-3 weeks of cough which is dry and hacking and chest discomfort with coughing but no chest pain without the cough, sore throat, body aches, sinus pain and drainage. Both of her children have had RSV and this patient did not get her influenza shot this year. She has not seen her provider as she says she has not been able to get in to get an appointment in the clinic. She's not having vomiting or diarrhea no shortness of breath no headache but she has had body aches and malaise. She is eating and drinking normally. Patient says she's been taking a generic antihistamine to help with the sinus drainage Review of systems: As per history of present illness and below otherwise all systems reviewed and negative. Past medical history: As per history of present illness and as reviewed below otherwise noncontributory. Surgical history: As per history of present illness and as reviewed below otherwise noncontributory. Social history: No reported history of drug or alcohol abuse. Family history: As per history of present illness and as reviewed below otherwise noncontributory. Physical exam: General: Well-developed well-nourished female who is nontoxic and mildly overweight. A dry cough is appreciated on my evaluation the ED. Her voice is normal without breathlessness but there is a nasal quality. HEENT: Atraumatic, normocephalic, pupils reactive, negative for conjunctival pallor or scleral icterus, mucous membranes moist, throat clear but there is some posterior oral pharyngeal erythema, there is no cervical adenopathy or nuchal rigidity there is no gross sinus tenderness,, neck supple, nontender, trachea midline. Turbinates are only slightly boggy bilaterally but there is some mild frontal and maxillary sinus tenderness on palpation more on the right Lungs: Clear to auscultation, breath sounds equal bilaterally, chest nontender. No wheezing or stridor Heart: S1S2, regular rate and rhythm no overt murmurs Abdomen: Soft, nondistended, nontender. NABS Pelvis: Deferred Genitourinary: Deferred. Rectal: Deferred. Extremities: Atraumatic, negative for cords or calf pain. Neurovascular unremarkable. Neuro: Awake, alert, oriented. Cranial nerves II through XII unremarkable. Cerebellum unremarkable. Motor and sensory unremarkable throughout. Exam nonfocal. Diagnostics: Chest x-ray rapid strep influenza Therapeutics: Spacer and teaching Impression: Bronchitis/persisting cough/sinusitis Definitive disposition and diagnosis as appropriate pending reevaluation and review of above. Throat Pain Score (Numeric/FACES): 6 - Related Data Allergies Allergy/AdvReac Type Severity Reaction Status Date / Time No Known Allergies Allergy Verified 06/28/18 19:44 Home Meds: Home Meds Levothyroxine 125 mcg PO DAILY 01/04/14 [History] Escitalopram [Lexapro] 10 tab PO DAILY 10/19/14 [History] Past Medical History - Past Health History Medical/Surgical History: Denies Medical/Surgical History HEENT History: Reports: None Cardiovascular History: Reports: None Respiratory History: Reports: None Gastrointestinal History: Reports: Irritable Bowel Syndrome Genitourinary History: Reports: None 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: Musculoskeletal History: Reports: None Neurological History: Reports: Migraines Psychiatric History: Reports: Depression Endocrine/Metabolic History: Reports: Hypothyroidism, Other (See Below) Other Endocrine/Metabolic History: Pre-diabetes Hematologic History: Reports: None Immunologic History: Reports: None Oncologic (Cancer) History: Reports: None Dermatologic History: Reports: None - Infectious Disease History Infectious Disease History: Reports: None - Past Surgical History Head Surgeries/Procedures: Reports: None HEENT Surgical History: Reports: Naso-Sinus Surgery GI Surgical History: Reports: None Female Surgical History: Reports: Tubal Ligation Endocrine Surgical History: Reports: None Neurological Surgical History: Reports: None Social & Family History - Family History Family Medical History: Noncontributory Cardiac: Reports: Hypertension Psychiatric: Reports: Depression Endocrine/Metabolic: Reports: Hypothyroidism - Tobacco Use Smoking Status *Q: Never Smoker Second Hand Smoke Exposure: No - Caffeine Use Caffeine Use: Reports: None - Recreational Drug Use Recreational Drug Use: No ED ROS GENERAL - Review of Systems Review Of Systems: ROS reveals no pertinent complaints other than HPI. ED EXAM, GENERAL - Physical Exam Exam: See Below (See dictation) Course - Vital Signs Last Recorded V/S: Last Vital Signs Temp 36.3 C 06/28/18 19:44 Pulse 103 H 06/28/18 19:44 Resp 18 06/28/18 19:44 BP 134/93 H 06/28/18 19:44 Pulse Ox 97 06/28/18 19:44 - Orders/Labs/Meds Orders: Active Orders 24 hr Category Date Time Status Communication Order [RC] STAT Care 06/28/18 20:01 Active Chest 2V [CR] Stat Exams 06/28/18 20:01 Taken CULTURE STREP A CONFIRMATION [RM] Stat Lab 06/28/18 20:05 Results STREP SCRN A RAPID W CULT CONF [RM] Stat Lab 06/28/18 20:05 Results Departure - Departure Time of Disposition: 20:46 Disposition: Home, Self-Care 01 Condition: Good Clinical Impression: Persistent cough, Bronchitis Sinusitis Qualifiers: Sinusitis location: unspecified location Chronicity: unspecified Qualified Code (s): J32.9 - Chronic sinusitis, unspecified - Discharge Information Referrals: PCP,Unknown [Primary Care Provider] - Forms: ED Department Discharge Additional Instructions: The following information is given to patients seen in the emergency department who are being discharged to home. This information is to outline your options for follow-up care. We provide all patients seen in our emergency department with a follow-up referral. The need for follow-up, as well as the timing and circumstances, are variable depending upon the specifics of your emergency department visit. If you don't have a primary care physician on staff, we will provide you with a referral. We always advise you to contact your personal physician following an emergency department visit to inform them of the circumstance of the visit and for follow-up with them and/or the need for any referrals to a consulting specialist. The emergency department will also refer you to a specialist when appropriate. This referral assures that you have the opportunity for followup care with a specialist. All of these measure are taken in an effort to provide you with optimal care, which includes your followup. Under all circumstances we always encourage you to contact your private physician who remains a resource for coordinating your care. When calling for followup care, please make the office aware that this follow-up is from your recent emergency room visit. If for any reason you are refused follow-up, please contact the [facility] emergency department at and ask to speak to the emergency department charge nurse. [facility] Primary care- Internal Medicine and Family [place] [id number] [place] [id number] Push hydration and use [id number] Tylenol or ibuprofen/Motrin for fevers and pain. Please use a decongestant/antihistamine such as Ashlyn or Claritin or Benadryl or any generic version to help dry the fluid out of your sinuses. Please take all medication as prescribed. Please call and try to schedule a follow-up appointment in the clinic with one of her providers or your provider and return to ER as needed and as discussed. - My Orders Last 24 Hours: My Active Orders 06/28/18 20:01 Communication Order [RC] STAT Chest 2V [CR] Stat 06/28/18 20:05 CULTURE STREP A CONFIRMATION [RM] Stat STREP SCRN A RAPID W CULT CONF [RM] Stat - Assessment/Plan Last 24 Hours: My Active Orders 06/28/18 20:01 Communication Order [RC] STAT Chest 2V [CR] Stat 06/28/18 20:05 CULTURE STREP A CONFIRMATION [RM] Stat STREP SCRN A RAPID W CULT CONF [RM] Stat
--- NOTE | 2018-06-28 20:47 | CR ---
INDICATION: Chest pain, shortness of breath TECHNIQUE: Chest radiograph 2 views COMPARISON: None FINDINGS: Mediastinum: The mediastinum is normal in appearance. The heart silhouette is normal in size and morphology. Lung: Both lungs are unremarkable in appearance. No sign of pleural effusion seen. No pneumothorax is identified. Musculoskeletal: Unremarkable for age. IMPRESSION: 1. No acute cardiopulmonary disease is seen. Dictated by: Heath Vee MD @ 06/28/2018 20:46:06 (Electronically Signed)
[2018-06-28] MEDS ORDERED: predniSONE 20 MG Tab PO ONE (20:49)
== END 2018-06-28 21:05 | disposition home or self-care (01) ==
LOC: MW.ED 19:34
DX: J40 Bronchitis, not specified as acute or chronic (principal); J32.9 Chronic sinusitis, unspecified; F32.9 Major depressive disorder, single episode, unspecified; E03.9 Hypothyroidism, unspecified; Z79.899 Other long term (current) drug therapy
CPT/HCPCS: 71046; 87081; 87804; 87880; 99283; A9270

== ENCOUNTER 2018-07-30 06:31 | Emergency (ER) | payer BC ==
--- NOTE | 2018-07-30 07:00 | EDM.PDOC ---
ED HPI GENERAL MEDICAL PROBLEM - General Chief Complaint: Headache Stated Complaint: MIGRAINE FOR 3 DAYS Time Seen by Provider: 07/30/18 06:55 Source of Information: Reports: Patient History Limitations: Reports: No Limitations - History of Present Illness INITIAL COMMENTS - FREE TEXT/NARRATIVE: History of present illness: []Patient has had 4 days of atypical migraine headache. She states she is nauseated but not vomiting. She denies any fevers, chills, sinus congestion or pain, ear pain sore throat or neck pain. She has used Excedrin Migraine without relief each usually works for her. Review of systems: As per history of present illness and below otherwise all systems reviewed and negative. Past medical history: As per history of present illness and as reviewed below otherwise noncontributory. Surgical history: As per history of present illness and as reviewed below otherwise noncontributory. Social history: No reported history of drug or alcohol abuse. Family history: As per history of present illness and as reviewed below otherwise noncontributory. Physical exam: General: Well developed, well nourished in NAD HEENT: Atraumatic, normocephalic, pupils reactive, negative for conjunctival pallor or scleral icterus, mucous membranes moist, throat clear, neck supple, nontender, trachea midline. Lungs: Clear to auscultation, breath sounds equal bilaterally, chest nontender. Heart: S1S2, regular, negative for clicks, rubs, or JVD. Abdomen: NABS, Soft, nondistended, nontender. Negative for masses or hepatosplenomegaly. Negative for costovertebral tenderness. Pelvis: Stable nontender. Genitourinary: Deferred. Rectal: Deferred. Extremities: Atraumatic, negative for cords or calf pain. Neurovascular unremarkable. Neuro: Awake, alert, oriented. Cranial nerves II through XII unremarkable. Cerebellum unremarkable. Motor and sensory unremarkable throughout. Exam nonfocal. Skin:warm and dry Diagnostics: None Therapeutics: Toradol IM ED Course: Improved Impression: Migraine headache Prescriptions: Zofran, Plan: Follow-up with primary care return if symptoms worsen or change. Definitive disposition and diagnosis as appropriate pending reevaluation and review of above. Headache Pain Score (Numeric/FACES): 7 - Related Data Allergies Allergy/AdvReac Type Severity Reaction Status Date / Time No Known Allergies Allergy Verified 07/30/18 06:42 Home Meds: Home Meds Levothyroxine 125 mcg PO DAILY 01/04/14 [History] Escitalopram [Lexapro] 10 tab PO DAILY 10/19/14 [History] Ondansetron HCl [Zofran] 4 mg PO Q4HR #12 tablet 07/30/18 [Rx] Past Medical History - Past Health History Medical/Surgical History: Denies Medical/Surgical History HEENT History: Reports: None Cardiovascular History: Reports: None Respiratory History: Reports: None Gastrointestinal History: Reports: Irritable Bowel Syndrome Genitourinary History: Reports: 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 History: Reports: None Neurological History: Reports: Migraines Psychiatric History: Reports: Depression Endocrine/Metabolic History: Reports: Hypothyroidism, Other (See Below) Other Endocrine/Metabolic History: Pre-diabetes Hematologic History: Reports: None Immunologic History: Reports: None Oncologic (Cancer) History: Reports: None Dermatologic History: Reports: None - Infectious Disease History Infectious Disease History: Reports: None - Past Surgical History Head Surgeries/Procedures: Reports: None HEENT Surgical History: Reports: Naso-Sinus Surgery GI Surgical History: Reports: None Female Surgical History: Reports: Tubal Ligation Endocrine Surgical History: Reports: None Neurological Surgical History: Reports: None Social & Family History - Family History Family Medical History: Noncontributory Cardiac: Reports: Hypertension Psychiatric: Reports: Depression Endocrine/Metabolic: Reports: Hypothyroidism - Tobacco Use Smoking Status *Q: Never Smoker - Caffeine Use Caffeine Use: Reports: None - Recreational Drug Use Recreational Drug Use: No ED ROS GENERAL - Review of Systems Review Of Systems: ROS reveals no pertinent complaints other than HPI. (The history of present illness) - Physical Exam Exam: See Below (See history of present illness) Course - Vital Signs Last Recorded V/S: Last Vital Signs Temp 96.3 F 07/30/18 06:40 Pulse 73 07/30/18 06:40 Resp BP 145/82 H 07/30/18 06:40 Pulse Ox 97 07/30/18 06:40 - Orders/Labs/Meds Meds: Medications Discontinued Medications Generic Name Dose Route Start Last Admin Trade Name Freq PRN Reason Stop Dose Admin Ketorolac Tromethamine 60 mg 07/30/18 07:15 07/30/18 07:29 Toradol IM 07/30/18 07:16 60 mg ONETIME ONE Administration Ondansetron HCl 4 mg 07/30/18 07:15 07/30/18 07:30 Zofran Odt PO 07/30/18 07:16 4 mg ONETIME ONE Administration Departure - Departure Time of Disposition: 08:17 Disposition: Home, Self-Care 01 Condition: Good Clinical Impression: Migraine headache Qualifiers: Migraine type: unspecified Status migrainosus presence: without status migrainosus Intractability: not intractable Qualified Code(s): G43.909 - Migraine, unspecified, not intractable, without status migrainosus - Discharge Information *PRESCRIPTION DRUG MONITORING PROGRAM REVIEWED*: No *COPY OF PRESCRIPTION DRUG MONITORING REPORT IN PATIENT ISIDRA: No Prescriptions: Ondansetron HCl [Zofran] 4 mg PO Q4HR #12 tablet Referrals: PCP,None [Primary Care Provider] - Forms: ED Department Discharge Additional Instructions: The following information is given to patients seen in the emergency department who are being discharged to home. This information is to outline your options for follow-up care. We provide all patients seen in our emergency department with a follow-up referral. The need for follow-up, as well as the timing and circumstances, are variable depending upon the specifics of your emergency department visit. If you don't have a primary care physician on staff, we will provide you with a referral. We always advise you to contact your personal physician following an emergency department visit to inform them of the circumstance of the visit and for follow-up with them and/or the need for any referrals to a consulting specialist. The emergency department will also refer you to a specialist when appropriate. This referral assures that you have the opportunity for follow-up care with a specialist. All of these measure are taken in an effort to provide you with optimal care, which includes your follow-up. Under all circumstances we always encourage you to contact your private physician who remains a resource for coordinating your care. When calling for follow-up care, please make the office aware that this follow-up is from your recent emergency room visit. If for any reason you are refused follow-up, please contact the [facility] Emergency Department at and asked to speak to the emergency department charge nurse. [facility] Primary Care [address] [place] [id number]
[2018-07-30] MEDS ORDERED: Ketorolac 60 MG/2 ML SDV IM ONE (07:15)
[2018-07-30] MEDS ORDERED: Ondansetron 4 MG Tab.DIS PO ONE (07:15)
[2018-07-30 08:41] VITALS: BP 161/93
== END 2018-07-30 08:42 | disposition home or self-care (01) ==
LOC: MW.ED 06:31
DX: G43.909 Migraine, unspecified, not intractable, without status migrainosus (principal); E03.9 Hypothyroidism, unspecified; F32.9 Major depressive disorder, single episode, unspecified; Z79.899 Other long term (current) drug therapy
CPT/HCPCS: 96372; 99283; A9270; J1885

== ENCOUNTER 2018-12-21 03:29 | Emergency (ER) | payer BC ==
[2018-12-21] MEDS ORDERED: Sodium Chloride 0.9% 1,000 ML IV ONE (03:42)
[2018-12-21] MEDS ORDERED: Ketorolac 30 MG/ML SDV IVPUSH ONE (03:42)
--- NOTE | 2018-12-21 03:45 | EDM.PDOC ---
ED HPI GENERAL MEDICAL PROBLEM - General Chief Complaint: Abdominal Pain Stated Complaint: RIGHT SIDE ABDOMINAL PAIN Time Seen by Provider: 12/21/18 03:42 - History of Present Illness INITIAL COMMENTS - FREE TEXT/NARRATIVE: HISTORY AND PHYSICAL: History of present illness: Patient's 43-year-old white female who presents with a concern of chest pain and right upper quadrant abdominal pain chest pain is been off and on over the last several days without associated shortness of breath nausea vomiting or palpitations patient denies fever chills denies trauma states that she did have an inflamed gallbladder with one of her pregnancies. Review of systems: As per history of present illness and below otherwise all systems reviewed and negative. Past medical history: As per history of present illness and as reviewed below otherwise noncontributory. Surgical history: As per history of present illness and as reviewed below otherwise noncontributory. Social history: No reported history of drug or alcohol abuse. Family history: As per history of present illness and as reviewed below otherwise noncontributory. Physical exam: HEENT: Atraumatic, normocephalic, pupils reactive, negative for conjunctival pallor or scleral icterus, mucous membranes moist, throat clear, neck supple, nontender, trachea midline. Lungs: Clear to auscultation, breath sounds equal bilaterally, chest nontender. Heart: S1S2, regular, negative for clicks, rubs, or JVD. Abdomen: Soft, nondistended, mild tenderness in the right upper quadrant deep palpation no rebound no guarding. Negative for masses or hepatosplenomegaly. Negative for costovertebral tenderness. Pelvis: Stable nontender. Genitourinary: Deferred. Rectal: Deferred. Extremities: Atraumatic, negative for cords or calf pain. Neurovascular unremarkable. Neuro: Awake, alert, oriented. Cranial nerves II through XII unremarkable. Cerebellum unremarkable. Motor and sensory unremarkable throughout. Exam nonfocal. Diagnostics: CBC CMP and lipase troponin chest x-ray EKG ultrasound right upper quadrant urinalysis UCG Therapeutics: Saline 1 L bolus Toradol 30 mg IV Impression: #1 atypical chest pain #2 right-sided abdominal pain Definitive disposition and diagnosis as appropriate pending reevaluation and review of above. right middle back;chest;LUQ abdomen Pain Score (Numeric/FACES): 2 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 History: Reports: None 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: Musculoskeletal History: Reports: None Neurological History: Reports: Migraines Psychiatric History: Reports: Depression Endocrine/Metabolic History: Reports: Hypothyroidism, Other (See Below) Other Endocrine/Metabolic History: Pre-diabetes Hematologic History: Reports: None Immunologic History: Reports: None Oncologic (Cancer) History: Reports: None Dermatologic History: Reports: None - Infectious Disease History Infectious Disease History: Reports: None - Past Surgical History Head Surgeries/Procedures: Reports: None HEENT Surgical History: Reports: Naso-Sinus Surgery GI Surgical History: Reports: None Female Surgical History: Reports: Tubal Ligation Endocrine Surgical History: Reports: None Neurological Surgical History: Reports: None Social & Family History - Family History Family Medical History: Noncontributory Cardiac: Reports: Hypertension Psychiatric: Reports: Depression Endocrine/Metabolic: Reports: Hypothyroidism - Caffeine Use Caffeine Use: Reports: None ED ROS GENERAL - Review of Systems Review Of Systems: ROS reveals no pertinent complaints other than HPI. ED EXAM, GENERAL - Physical Exam Exam: See Below (The dictation) Course - Vital Signs Last Recorded V/S: Last Vital Signs Temp 36.6 C 12/21/18 05:37 Pulse 55 L 12/21/18 05:37 Resp 16 12/21/18 05:37 BP 153/84 H 12/21/18 05:37 Pulse Ox 97 12/21/18 05:37 - Orders/Labs/Meds Orders: Active Orders 24 hr Category Date Time Status Cardiac Monitoring [RC] . DIRECTED Care 12/21/18 03:42 Active EKG Documentation Completion [RC] STAT Care 12/21/18 03:42 Active Saline Lock Insert [OM.PC] Stat Oth 12/21/18 03:42 Ordered Labs: Laboratory Tests 12/21/18 12/21/18 12/21/18 Range/Units 03:44 03:47 04:04 WBC 10.48 (4.0-11.0) K/uL RBC 4.15 L (4.30-5.90) M/uL Hgb 13.5 (12.0-16.0) g/dL Hct 40.0 (36.0-46.0) % MCV 96.4 (80.0-98.0) fL MCH 32.5 H (27.0-32.0) pg MCHC 33.8 (31.0-37.0) g/dL RDW Std Deviation 44.4 (28.0-62.0) fl RDW Coeff of Lukas 13 (11.0-15.0) % Plt Count 285 (150-400) K/uL MPV 9.90 (7.40-12.00) fL Neut % (Auto) 52.7 (48.0-80.0) % Lymph % (Auto) 37.3 (16.0-40.0) % [place] % (Auto) 6.5 (0.0-15.0) % Eos % (Auto) 3.1 (0.0-7.0) % Baso % (Auto) 0.4 (0.0-1.5) % Neut # (Auto) 5.5 (1.4-5.7) K/uL Lymph # (Auto) 3.9 H (0.6-2.4) K/uL [place] # (Auto) 0.7 (0.0-0.8) K/uL Eos # (Auto) 0.3 (0.0-0.7) K/uL Baso # (Auto) 0.0 (0.0-0.1) K/uL Nucleated RBC % 0.0 /100WBC Nucleated RBCs # 0 K/uL INR Sodium (136-145) mmol/L Potassium (3.5-5.1) mmol/L Chloride (98-107) mmol/L Carbon Dioxide (21.0-32.0) mmol/L BUN (7.0-18.0) mg/dL Creatinine (0.6-1.0) mg/dL Est Cr Clr Drug Dosing mL/min Estimated GFR (MDRD) ml/min Glucose (74-106) mg/dL Calcium (8.5-10.1) mg/dL Total Bilirubin (0.2-1.0) mg/dL AST (15-37) IU/L ALT (14-63) IU/L Alkaline Phosphatase (46-116) U/L Troponin I (0.000-0.056) ng/mL Total Protein (6.4-8.2) g/dL Albumin (3.4-5.0) g/dL Globulin (2.6-4.0) g/dL Albumin/Globulin Ratio (0.9-1.6) Lipase (73-393) U/L Urine Color YELLOW Urine Appearance CLEAR Urine pH 6.0 (5.0-8.0) Ur Specific [place] >= 1.030 (1.001-1.035) Urine Protein NEGATIVE (NEGATIVE) mg/dL Urine Glucose (UA) NEGATIVE (NEGATIVE) mg/dL Urine Ketones NEGATIVE (NEGATIVE) mg/dL Urine Occult Blood NEGATIVE (NEGATIVE) Urine Nitrite NEGATIVE (NEGATIVE) Urine Bilirubin NEGATIVE (NEGATIVE) Urine Urobilinogen 0.2 (<2.0) EU/dL Ur Leukocyte Esterase NEGATIVE (NEGATIVE) Urine HCG, Qual NEGATIVE (NEGATIVE) 12/21/18 12/21/18 Range/Units 04:04 04:04 WBC (4.0-11.0) K/uL RBC (4.30-5.90) M/uL Hgb (12.0-16.0) g/dL Hct (36.0-46.0) % MCV (80.0-98.0) fL MCH (27.0-32.0) pg MCHC (31.0-37.0) g/dL RDW Std Deviation (28.0-62.0) fl RDW Coeff of Lukas (11.0-15.0) % Plt Count (150-400) K/uL MPV (7.40-12.00) fL Neut % (Auto) (48.0-80.0) % Lymph % (Auto) (16.0-40.0) % [place] % (Auto) (0.0-15.0) % Eos % (Auto) (0.0-7.0) % Baso % (Auto) (0.0-1.5) % Neut # (Auto) (1.4-5.7) K/uL Lymph # (Auto) (0.6-2.4) K/uL [place] # (Auto) (0.0-0.8) K/uL Eos # (Auto) (0.0-0.7) K/uL Baso # (Auto) (0.0-0.1) K/uL Nucleated RBC % /100WBC Nucleated RBCs # K/uL INR 0.95 Sodium 138 (136-145) mmol/L Potassium 4.0 (3.5-5.1) mmol/L Chloride 105 (98-107) mmol/L Carbon Dioxide 23.2 (21.0-32.0) mmol/L BUN 23 H (7.0-18.0) mg/dL Creatinine 0.7 (0.6-1.0) mg/dL Est Cr Clr Drug Dosing 92.29 mL/min Estimated GFR (MDRD) > 60.0 ml/min Glucose 117 H (74-106) mg/dL Calcium 9.4 (8.5-10.1) mg/dL Total Bilirubin 0.2 (0.2-1.0) mg/dL AST 14 L (15-37) IU/L ALT 28 (14-63) IU/L Alkaline Phosphatase 90 (46-116) U/L Troponin I < 0.050 (0.000-0.056) ng/mL Total Protein 7.1 (6.4-8.2) g/dL Albumin 3.8 (3.4-5.0) g/dL Globulin 3.3 (2.6-4.0) g/dL Albumin/Globulin Ratio 1.2 (0.9-1.6) Lipase 225 (73-393) U/L Urine Color Urine Appearance Urine pH (5.0-8.0) Ur Specific [place] (1.001-1.035) Urine Protein (NEGATIVE) mg/dL Urine Glucose (UA) (NEGATIVE) mg/dL Urine Ketones (NEGATIVE) mg/dL Urine Occult Blood (NEGATIVE) Urine Nitrite (NEGATIVE) Urine Bilirubin (NEGATIVE) Urine Urobilinogen (<2.0) EU/dL Ur Leukocyte Esterase (NEGATIVE) Urine HCG, Qual (NEGATIVE) Meds: Medications Discontinued Medications Generic Name Dose Route Start Last Admin Trade Name Freq PRN Reason Stop Dose Admin Sodium Chloride 1,000 mls @ 999 mls/hr 12/21/18 03:42 12/21/18 04:04 Normal Saline IV 12/21/18 04:42 999 mls/hr BOLUS ONE Administration Ketorolac Tromethamine 30 mg 12/21/18 03:42 12/21/18 04:16 Toradol IVPUSH 12/21/18 03:43 30 mg ONETIME ONE Administration Departure - Departure Time of Disposition: 06:40 Disposition: Home, Self-Care 01 Condition: Good Clinical Impression: Abdominal pain, Atypical chest pain - Discharge Information Referrals: PCP,None [Primary Care Provider] - Forms: ED Department Discharge Additional Instructions: The following information is given to patients seen in the emergency department who are being discharged to home. This information is to outline your options for follow-up care. We provide all patients seen in our emergency department with a follow-up referral. The need for follow-up, as well as the timing and circumstances, are variable depending upon the specifics of your emergency department visit. If you don't have a primary care physician on staff, we will provide you with a referral. We always advise you to contact your personal physician following an emergency department visit to inform them of the circumstance of the visit and for follow-up with them and/or the need for any referrals to a consulting specialist. The emergency department will also refer you to a specialist when appropriate. This referral assures that you have the opportunity for followup care with a specialist. All of these measure are taken in an effort to provide you with optimal care, which includes your followup. Under all circumstances we always encourage you to contact your private physician who remains a resource for coordinating your care. When calling for followup care, please make the office aware that this follow-up is from your recent emergency room visit. If for any reason you are refused follow-up, please contact the [facility] emergency department at and asked to speak to the emergency department charge nurse. [facility] Specialty [facility] - General Surgery Professional Building [address] [place] [address], [address] [place] [address] Follow-up primary medical doctor as discussed return as needed as discussed call for appointment general surgery above - My Orders Last 24 Hours: My Active Orders 12/21/18 03:42 Cardiac Monitoring [RC] . DIRECTED EKG Documentation Completion [RC] STAT Saline Lock Insert [OM.PC] Stat - Assessment/Plan Last 24 Hours: My Active Orders 12/21/18 03:42 Cardiac Monitoring [RC] . DIRECTED EKG Documentation Completion [RC] STAT Saline Lock Insert [OM.PC] Stat
[2018-12-21 04:35] LABS: BLOOD UREA NITROGEN,BUN 23 mg/dL (7.0-18.0); CARBON DIOXIDE,CO2 23.2 mmol/L (21.0-32.0); CHLORIDE,CL 105 mmol/L (98-107); GLUCOSE RANDOM 117 mg/dL (74-106); LIPASE 225 U/L (73-393); SODIUM,NA 138 mmol/L (136-145)
--- NOTE | 2018-12-21 06:18 | CR ---
INDICATION: Chest pain TECHNIQUE: Chest 1 views COMPARISON: Chest x-ray 06/28/2018 FINDINGS: Cardiovascular and mediastinum: Upper normal heart size for the portable technique with mild tortuosity of the thoracic aorta. Lungs and pleural spaces: Low lung volumes without pleural effusion or pneumothorax. Minimal patchy and linear basilar atelectasis. Bones and soft tissues: No significant findings. IMPRESSION: Hypoaeration with minimal patchy and linear basilar atelectasis. Dictated by Vadim Porter MD @ Dec 21 2018 6:16AM Signed by Dr. Vadim Porter @ Dec 21 2018 6:17AM
--- NOTE | 2018-12-21 06:37 | US ---
HISTORY: Abdominal pain. TECHNIQUE: Ultrasound of the abdomen. COMPARISON: Abdominal ultrasound 09/07/2014. FINDINGS: Diffusely increased echogenicity of the liver. No liver lesions. No intrahepatic bile duct dilation. No cholelithiasis, gallbladder wall thickening, or pericholecystic fluid. Common duct measures 5 mm in caliber, within normal limits. Pancreas is mostly obscured. Right kidney measures 11.9 cm long axis. Normal renal parenchymal thickness and echogenicity. No renal mass. No hydronephrosis. IMPRESSION: Fatty infiltration of the liver. Dictated by Ken Calle MD @ Dec 21 2018 6:32AM Signed by Dr. Ken Calle @ Dec 21 2018 6:35AM
[2018-12-21 07:03] VITALS: BP 117/71; PULSE 61
== END 2018-12-21 07:03 | disposition home or self-care (01) ==
LOC: MW.ED 03:29
DX: R07.89 Other chest pain (principal); E03.9 Hypothyroidism, unspecified; F32.9 Major depressive disorder, single episode, unspecified; Z79.899 Other long term (current) drug therapy
CPT/HCPCS: 71045; 76705; 80053; 81003; 81025; 83690; 84484; 85025; 85610; 93005; 96361; 96374; 99285; J1885; J7040; 99284

== ENCOUNTER 2020-03-27 12:26 | Emergency (ER) | payer SELFPAY ==
[2020-03-27] MEDS ORDERED: Sodium Chloride 0.9% 1,000 ML IV ONE (13:03)
[2020-03-27] MEDS ORDERED: Sodium Chloride 0.9% 2.5 ML Syringe FLUSH PRN (13:03)
[2020-03-27] MEDS ORDERED: Ketorolac 15 MG/ML SDV IVPUSH ONE (13:03)
[2020-03-27] MEDS ORDERED: Famotidine 20 MG/2 ML SDV IVPUSH ONE (13:03)
[2020-03-27] MEDS ORDERED: Ondansetron 4 MG/2 ML SDV IVPUSH ONE (13:03)
[2020-03-27] MEDS ORDERED: Sodium Chloride 0.9% 10 ML Syringe FLUSH PRN (13:03)
--- NOTE | 2020-03-27 13:40 | EDM.PDOC ---
ED HPI GENERAL MEDICAL PROBLEM - General Chief Complaint: Respiratory Problem Stated Complaint: BODY PAIN, COUGHING, SOB Time Seen by Provider: 03/27/20 12:54 Source of Information: Reports: Patient History Limitations: Reports: No Limitations - History of Present Illness INITIAL COMMENTS - FREE TEXT/NARRATIVE: History of present illness: [Patient is 44-year-old female who presents with flulike symptoms for the last couple of days. Denies any known exposure to Covid. Complains of body aches and chills, cough, sore throat. Been taking [id number] remedies to help with her symptoms. Denies any major chronic medical problems. Takes levothyroxine and Escitalopram. Denies chest pain. Denies current shortness of breath. Denies any dysuria or hematuria. No vomiting or diarrhea. No belly pain.] Review of systems: As per history of present illness and below otherwise all systems reviewed and negative. Past medical history: As per history of present illness and as reviewed below otherwise noncontributory. Surgical history: As per history of present illness and as reviewed below otherwise noncontributory. Social history: No reported history of drug or alcohol abuse. Family history: As per history of present illness and as reviewed below otherwise noncontributory. Physical exam: General: Awake, alert, no acute distress, A&O X3. HEENT: Atraumatic, normocephalic, pupils reactive, negative for conjunctival pallor or scleral icterus, mucous membranes moist, throat clear, neck supple, nontender, trachea midline. Lungs: Clear to auscultation, breath sounds equal bilaterally, chest nontender. Heart: tachycardic, normal S1S2, no JVD. Abdomen: Soft, nondistended, nontender. Negative for masses or hepatosplenomegaly. Pelvis: Stable nontender. Genitourinary: Deferred. Rectal: Deferred. Extremities: Atraumatic, no edema, Neurovascular unremarkable. Neuro: Motor and sensory grossly intact throughout. Exam nonfocal. Diagnostics: [] Therapeutics: [] Impression: [] Plan: [] Definitive disposition and diagnosis as appropriate pending reevaluation and review of above. 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 History: Reports: None Neurological History: Reports: Migraines Psychiatric History: Reports: Depression Endocrine/Metabolic History: Reports: Hypothyroidism, Other (See Below) Other Endocrine/Metabolic History: Pre-diabetes Hematologic History: Reports: None Immunologic History: Reports: None Oncologic (Cancer) History: Reports: None Dermatologic History: Reports: None - Infectious Disease History Infectious Disease History: Reports: None - Past Surgical History Head Surgeries/Procedures: Reports: None HEENT Surgical History: Reports: Naso-Sinus Surgery GI Surgical History: Reports: None Female Surgical History: Reports: Tubal Ligation Endocrine Surgical History: Reports: None Neurological Surgical History: Reports: None Social & Family History - Family History Family Medical History: Noncontributory Cardiac: Reports: Hypertension Psychiatric: Reports: Depression Endocrine/Metabolic: Reports: Hypothyroidism - Caffeine Use Caffeine Use: Reports: None ED ROS GENERAL - Review of Systems Review Of Systems: Comprehensive ROS is negative, except as noted in HPI. ED EXAM, GENERAL - Physical Exam Exam: See Below (see h and p) #1 Interpretation EKG Date: 03/27/20 Time: 13:19 Rhythm: NSR Rate (Beats/Min): 110 [place]: Normal P-Wave: Present QRS: Normal ST-T: Normal QT: Normal EKG Interpretation Comments: sinus tach Course - Vital Signs Text/Narrative:: Patient is Covid positive. She reports feeling improvement after getting IV fluids and Toradol. Remainder of her labs are reassuring, troponin negative, EKG nonischemic, I agreed to send her home with a prescription for a Z-Juan José because of some equivocal findings on her chest x-ray, they are likely viral in nature but I believe the pros outweigh the cons with giving her a Z-Juan José antibiotic. I encouraged outpatient follow-up, told her to isolate at home and use Tylenol and ibuprofen and other [id number] remedies as needed and directed to manage her symptoms. Return precautions also provided. Otherwise she was well-appearing and stable at discharge. - Orders/Labs/Meds Orders: Active Orders 24 hr Category Date Time Status EKG Documentation Completion [RC] STAT Care 03/27/20 13:04 Active CORONAVIRUS COVID-19 PCR PHL Stat Lab 03/27/20 13:50 Received Sodium Chloride 0.9% [Saline Flush] Med 03/27/20 13:03 Active 10 ml FLUSH ASDIRECTED PRN Sodium Chloride 0.9% [Saline Flush] Med 03/27/20 13:03 Active 2.5 ml FLUSH ASDIRECTED PRN Isolation [COMM] Routine Oth 03/27/20 13:04 Active Saline Lock Insert [OM.PC] Stat Oth 03/27/20 13:03 Ordered Medication Orders Sodium Chloride (Saline Flush) 10 ml FLUSH ASDIRECTED PRN PRN Reason: Keep Vein Open Sodium Chloride (Saline Flush) 2.5 ml FLUSH ASDIRECTED PRN PRN Reason: Keep Vein Open Labs: Laboratory Tests 03/27/20 03/27/20 03/27/20 Range/Units 13:50 14:06 14:06 WBC 8.86 (4.0-11.0) K/uL RBC 4.19 L (4.30-5.90) M/uL Hgb 13.8 (12.0-16.0) g/dL Hct 41.3 (36.0-46.0) % MCV 98.6 H (80.0-98.0) fL MCH 32.9 H (27.0-32.0) pg MCHC 33.4 (31.0-37.0) g/dL RDW Std Deviation 46.3 (28.0-62.0) fl RDW Coeff of Lukas 13 (11.0-15.0) % Plt Count 245 (150-400) K/uL MPV 9.90 (7.40-12.00) fL Neut % (Auto) 75.2 (48.0-80.0) % Lymph % (Auto) 15.5 L (16.0-40.0) % [place] % (Auto) 7.7 (0.0-15.0) % Eos % (Auto) 1.4 (0.0-7.0) % Baso % (Auto) 0.2 (0.0-1.5) % Neut # (Auto) 6.7 H (1.4-5.7) K/uL Lymph # (Auto) 1.4 (0.6-2.4) K/uL [place] # (Auto) 0.7 (0.0-0.8) K/uL Eos # (Auto) 0.1 (0.0-0.7) K/uL Baso # (Auto) 0.0 (0.0-0.1) K/uL Nucleated RBC % 0.0 /100WBC Nucleated RBCs # 0 K/uL Sodium 136 (136-145) mmol/L Potassium 3.6 (3.5-5.1) mmol/L Chloride 103 (98-107) mmol/L Carbon Dioxide 24.1 (21.0-32.0) mmol/L BUN 11 (7.0-18.0) mg/dL Creatinine 0.7 (0.6-1.0) mg/dL Est Cr Clr Drug Dosing TNP Estimated GFR (MDRD) > 60.0 ml/min Glucose 101 (74-106) mg/dL Calcium 8.4 L (8.5-10.1) mg/dL Total Bilirubin 0.3 (0.2-1.0) mg/dL AST 42 H (15-37) IU/L ALT 66 H (14-63) IU/L Alkaline Phosphatase 94 (46-116) U/L Troponin I < 0.050 (0.000-0.056) ng/mL Total Protein 7.1 (6.4-8.2) g/dL Albumin 3.6 (3.4-5.0) g/dL Globulin 3.5 (2.6-4.0) g/dL Albumin/Globulin Ratio 1.0 (0.9-1.6) HCG, Qual (NEG) SARS CoV-2 RNA Rapid JESSE POSITIVE H (NEGATIVE) 03/27/20 Range/Units 14:06 WBC (4.0-11.0) K/uL RBC (4.30-5.90) M/uL Hgb (12.0-16.0) g/dL Hct (36.0-46.0) % MCV (80.0-98.0) fL MCH (27.0-32.0) pg MCHC (31.0-37.0) g/dL RDW Std Deviation (28.0-62.0) fl RDW Coeff of Lukas (11.0-15.0) % Plt Count (150-400) K/uL MPV (7.40-12.00) fL Neut % (Auto) (48.0-80.0) % Lymph % (Auto) (16.0-40.0) % [place] % (Auto) (0.0-15.0) % Eos % (Auto) (0.0-7.0) % Baso % (Auto) (0.0-1.5) % Neut # (Auto) (1.4-5.7) K/uL Lymph # (Auto) (0.6-2.4) K/uL [place] # (Auto) (0.0-0.8) K/uL Eos # (Auto) (0.0-0.7) K/uL Baso # (Auto) (0.0-0.1) K/uL Nucleated RBC % /100WBC Nucleated RBCs # K/uL Sodium (136-145) mmol/L Potassium (3.5-5.1) mmol/L Chloride (98-107) mmol/L Carbon Dioxide (21.0-32.0) mmol/L BUN (7.0-18.0) mg/dL Creatinine (0.6-1.0) mg/dL Est Cr Clr Drug Dosing Estimated GFR (MDRD) ml/min Glucose (74-106) mg/dL Calcium (8.5-10.1) mg/dL Total Bilirubin (0.2-1.0) mg/dL AST (15-37) IU/L ALT (14-63) IU/L Alkaline Phosphatase (46-116) U/L Troponin I (0.000-0.056) ng/mL Total Protein (6.4-8.2) g/dL Albumin (3.4-5.0) g/dL Globulin (2.6-4.0) g/dL Albumin/Globulin Ratio (0.9-1.6) HCG, Qual NEGATIVE (NEG) SARS CoV-2 RNA Rapid JESSE (NEGATIVE) Meds: Medications Generic Name Dose Route Start Last Admin Trade Name Freq PRN Reason Stop Dose Admin Sodium Chloride 10 ml 03/27/20 13:03 Saline Flush FLUSH ASDIRECTED PRN Keep Vein Open Sodium Chloride 2.5 ml 03/27/20 13:03 Saline Flush FLUSH ASDIRECTED PRN Keep Vein Open Discontinued Medications Generic Name Dose Route Start Last Admin Trade Name Kwesi PRN Reason Stop Dose Admin Famotidine 20 mg 03/27/20 13:03 03/27/20 13:47 Pepcid IVPUSH 03/27/20 13:04 20 mg ONETIME ONE Administration Sodium Chloride 1,000 mls @ 999 mls/hr 03/27/20 13:03 03/27/20 13:44 Normal Saline IV 03/27/20 14:03 999 mls/hr .Bolus ONE Administration Ketorolac Tromethamine 15 mg 03/27/20 13:03 03/27/20 13:46 Toradol IVPUSH 03/27/20 13:04 15 mg ONETIME ONE Administration Ondansetron HCl 4 mg 03/27/20 13:03 03/27/20 13:45 Zofran IVPUSH 03/27/20 13:04 4 mg ONETIME ONE Administration Departure - Departure Time of Disposition: 15:00 Disposition: Home, Self-Care 01 Condition: Good Clinical Impression: COVID-19 - Discharge Information Instructions: COVID-19 Frequently Asked Questions Referrals: PCP,None [Primary Care Provider] - Forms: ED Department Discharge Additional Instructions: Isolate at home. Take all medications as prescribed. Return to the ER with any new or worsening symptoms. Follow-up with your primary care doctor. The following information is given to patients seen in the emergency department who are being discharged to home. This information is to outline your options for follow-up care. We provide all patients seen in our emergency department with a follow-up referral. The need for follow-up, as well as the timing and circumstances, are variable depending upon the specifics of your emergency department visit. If you don't have a primary care physician on staff, we will provide you with a referral. We always advise you to contact your personal physician following an emergency department visit to inform them of the circumstance of the visit and for follow-up with them and/or the need for any referrals to a consulting specialist. The emergency department will also refer you to a specialist when appropriate. This referral assures that you have the opportunity for follow-up care with a specialist. All of these measure are taken in an effort to provide you with optimal care, which includes your follow-up. Under all circumstances we always encourage you to contact your private physician who remains a resource for coordinating your care. When calling for follow-up care, please make the office aware that this follow-up is from your recent emergency room visit. If for any reason you are refused follow-up, please contact the [facility] Emergency Department at and asked to speak to the emergency department charge nurse. - My Orders Last 24 Hours: My Active Orders 03/27/20 13:03 Sodium Chloride 0.9% [Saline Flush] 10 ml FLUSH ASDIRECTED PRN Sodium Chloride 0.9% [Saline Flush] 2.5 ml FLUSH ASDIRECTED PRN Saline Lock Insert [OM.PC] Stat 03/27/20 13:04 EKG Documentation Completion [RC] STAT Isolation [COMM] Routine 03/27/20 13:50 CORONAVIRUS COVID-19 PCR PHL Stat - Assessment/Plan Last 24 Hours: My Active Orders 03/27/20 13:03 Sodium Chloride 0.9% [Saline Flush] 10 ml FLUSH ASDIRECTED PRN Sodium Chloride 0.9% [Saline Flush] 2.5 ml FLUSH ASDIRECTED PRN Saline Lock Insert [OM.PC] Stat 03/27/20 13:04 EKG Documentation Completion [RC] STAT Isolation [COMM] Routine 03/27/20 13:50 CORONAVIRUS COVID-19 PCR PHL Stat
--- NOTE | 2020-03-27 14:33 | CR ---
INDICATION: Cough. COMPARISON: 21 December 2018. TECHNIQUE: One view. FINDINGS: Subtle fluffy indistinct airspace opacity at the left base. This is less pronounced than before Pulmonary vascularity and cardiomediastinal silhouette are normal. IMPRESSION : Subtle airspace opacity left base. Recurrent or residual pneumonia should be assessed clinically. Two-view chest versus CT recommended for further characterization. Dictated by Jessee Huntley MD @ Mar 27 2020 2:29PM Signed by Dr. Jessee Huntley @ Mar 27 2020 2:31PM
[2020-03-27 14:48] LABS: BLOOD UREA NITROGEN,BUN 11 mg/dL (7.0-18.0); CARBON DIOXIDE,CO2 24.1 mmol/L (21.0-32.0); CHLORIDE,CL 103 mmol/L (98-107); GLUCOSE RANDOM 101 mg/dL (74-106); POTASSIUM,K 3.6 mmol/L (3.5-5.1); SODIUM,NA 136 mmol/L (136-145)
[2020-03-27 15:18] VITALS: BP 142/118; PULSE 100
== END 2020-03-27 15:15 | disposition home or self-care (01) ==
LOC: MW.ED 12:26
DX: U07.1 COVID-19 (principal); E03.9 Hypothyroidism, unspecified; F32.9 Major depressive disorder, single episode, unspecified; Z98.51 Tubal ligation status; Z79.899 Other long term (current) drug therapy
CPT/HCPCS: 36415; 71045; 80053; 84484; 84703; 85025; 87635; 87804; 93005; 96374; 96375; 99284; J1885; J2405; J3490; J7030; 93010; 99283; U0002

== ENCOUNTER 2020-04-28 20:06 | Emergency (ER) | payer SELFPAY ==
[2020-04-28] MEDS ORDERED: Sodium Chloride 0.9% 2.5 ML Syringe FLUSH PRN (20:31)
[2020-04-28] MEDS ORDERED: Sodium Chloride 0.9% 10 ML Syringe FLUSH PRN (20:31)
[2020-04-28] MEDS ORDERED: Morphine 4 MG/ML Syringe IVPUSH ONE (20:34)
[2020-04-28] MEDS ORDERED: Lactated Ringers 1,000 ML IV ONE (20:34)
[2020-04-28] MEDS ORDERED: Ondansetron 4 MG/2 ML SDV IVPUSH ONE (20:34)
--- NOTE | 2020-04-28 20:44 | EDM.PDOC ---
ED HPI GENERAL MEDICAL PROBLEM - General Chief Complaint: Abdominal Pain Stated Complaint: CHEST PAIN Time Seen by Provider: 04/28/20 20:31 Source of Information: Reports: Patient History Limitations: Reports: No Limitations - History of Present Illness INITIAL COMMENTS - FREE TEXT/NARRATIVE: 44 yo F history of IBS, biliary colic, bilateral tubal ligation presents with abdominal pain that started 4 hours ago. Pain is localized to the right lower quadrant, sharp, severe, radiates to the left lower quadrant, constant, no alleviating or exacerbating factors. She denies fever, chills, chest pain, shortness of breath. She admits to dysuria, nausea, anorexia. Her menses ended yesterday. ROS: A 10-point review of systems, other than pertinent positives and negatives as stated per HPI, is otherwise negative Past medical history: No additional pertinent history Past Surgical history: No additional pertinent history Social history: No additional pertinent history Family history: No additional pertinent history PHYSICAL EXAM General: AOx4, GCS = 15, moderate distress HEENT: dry mucous membrane Neck: supple, no meningismus, no Kernig or Brudzinski Cardiac: S1S2 RRR Respiratory: CTAB, no crackles or rales, no wheezing Abdomen: Soft, tenderness to lower abd diffusely. No rebound or guarding, nondistended, no pulsatile mass. Back: nontender Musculoskeletal: NVI distally, no deformity Neuro: No focal deficits, CN 2 - 12 WNL. Lower R abdominal pain Pain Score (Numeric/FACES): 8 - Related Data Allergies Allergy/AdvReac Type Severity Reaction Status Date / Time No Known Allergies Allergy Verified 04/28/20 20:27 Home Meds: Home Meds Levothyroxine 125 mcg PO DAILY 01/04/14 [History] Escitalopram [Lexapro] 20 tab PO DAILY 10/19/14 [History] Dicyclomine [Bentyl] 10 mg PO QIDACANDBED #12 cap 04/28/20 [Rx] Past Medical History - Past Health History Medical/Surgical History: Denies Medical/Surgical History HEENT History: Reports: None Cardiovascular History: Reports: None Respiratory History: Reports: None Gastrointestinal History: Reports: Irritable Bowel Syndrome Genitourinary History: Reports: None [employer] History: Reports: Musculoskeletal History: Reports: None Neurological History: Reports: Migraines Psychiatric History: Reports: Depression Endocrine/Metabolic History: Reports: Hypothyroidism, Other (See Below) Other Endocrine/Metabolic History: Pre-diabetes Hematologic History: Reports: None Immunologic History: Reports: None Oncologic (Cancer) History: Reports: None Dermatologic History: Reports: None - Infectious Disease History Infectious Disease History: Reports: Chicken Pox - Past Surgical History Head Surgeries/Procedures: Reports: None HEENT Surgical History: Reports: Naso-Sinus Surgery Other HEENT Surgeries/Procedures: sinus surgery GI Surgical History: Reports: None Female Surgical History: Reports: Tubal Ligation Endocrine Surgical History: Reports: None Neurological Surgical History: Reports: None Social & Family History - Family History Family Medical History: No Pertinent Family History Cardiac: Reports: Hypertension Psychiatric: Reports: Depression Endocrine/Metabolic: Reports: Hypothyroidism - Caffeine Use Caffeine Use: Reports: Soda - Recreational Drug Use Recreational Drug Use: No ED ROS GENERAL - Review of Systems Review Of Systems: See Below (see dictation) ED EXAM, GENERAL - Physical Exam Exam: See Below (see dictation) #1 Interpretation EKG Interpretation Comments: Heart rate = 77, Afib, normal sinus rhythm, normal QRS interval, no STEMI. EKG and rhythm strip interpreted by me at 2033 Course - Vital Signs Last Recorded V/S: Last Vital Signs Temp 96.5 F L 04/28/20 22:21 Pulse 61 04/28/20 22:21 Resp 18 04/28/20 22:21 BP 150/89 H 04/28/20 22:21 Pulse Ox 97 04/28/20 22:21 - Orders/Labs/Meds Orders: Active Orders 24 hr Category Date Time Status Cardiac Monitoring [RC] . DIRECTED Care 04/28/20 20:31 Active EKG Documentation Completion [RC] STAT Care 04/28/20 20:32 Active Pulse Oximetry [RC] ASDIRECTED Care 04/28/20 20:31 Active Sodium Chloride 0.9% [Saline Flush] Med 04/28/20 20:31 Active 10 ml FLUSH ASDIRECTED PRN Sodium Chloride 0.9% [Saline Flush] Med 04/28/20 20:31 Active 2.5 ml FLUSH ASDIRECTED PRN Saline Lock Insert [OM.PC] Stat Oth 04/28/20 20:31 Ordered Medication Orders Sodium Chloride (Saline Flush) 10 ml FLUSH ASDIRECTED PRN PRN Reason: Keep Vein Open Sodium Chloride (Saline Flush) 2.5 ml FLUSH ASDIRECTED PRN PRN Reason: Keep Vein Open Labs: Laboratory Tests 04/28/20 04/28/20 04/28/20 Range/Units 20:30 20:30 20:55 WBC 8.55 (4.0-11.0) K/uL RBC 4.16 L (4.30-5.90) M/uL Hgb 13.8 (12.0-16.0) g/dL Hct 40.7 (36.0-46.0) % MCV 97.8 (80.0-98.0) fL MCH 33.2 H (27.0-32.0) pg MCHC 33.9 (31.0-37.0) g/dL RDW Std Deviation 45.2 (28.0-62.0) fl RDW Coeff of Lukas 13 (11.0-15.0) % Plt Count 289 (150-400) K/uL MPV 10.40 (7.40-12.00) fL Neut % (Auto) 50.6 (48.0-80.0) % Lymph % (Auto) 37.0 (16.0-40.0) % [place] % (Auto) 8.0 (0.0-15.0) % Eos % (Auto) 3.9 (0.0-7.0) % Baso % (Auto) 0.5 (0.0-1.5) % Neut # (Auto) 4.3 (1.4-5.7) K/uL Lymph # (Auto) 3.2 H (0.6-2.4) K/uL [place] # (Auto) 0.7 (0.0-0.8) K/uL Eos # (Auto) 0.3 (0.0-0.7) K/uL Baso # (Auto) 0.0 (0.0-0.1) K/uL Nucleated RBC % 0.0 /100WBC Nucleated RBCs # 0 K/uL INR Sodium (136-145) mmol/L Potassium (3.5-5.1) mmol/L Chloride (98-107) mmol/L Carbon Dioxide (21.0-32.0) mmol/L BUN (7.0-18.0) mg/dL Creatinine (0.6-1.0) mg/dL Est Cr Clr Drug Dosing mL/min Estimated GFR (MDRD) ml/min Glucose (74-106) mg/dL Calcium (8.5-10.1) mg/dL Magnesium (1.8-2.4) mg/dL Total Bilirubin (0.2-1.0) mg/dL AST (15-37) IU/L ALT (14-63) IU/L Alkaline Phosphatase (46-116) U/L Troponin I (0.000-0.056) ng/mL Total Protein (6.4-8.2) g/dL Albumin (3.4-5.0) g/dL Globulin (2.6-4.0) g/dL Albumin/Globulin Ratio (0.9-1.6) Lipase (73-393) U/L Urine Color YELLOW Urine Appearance HAZY Urine pH 6.0 (5.0-8.0) Ur Specific [place] >= 1.030 (1.001-1.035) Urine Protein NEGATIVE (NEGATIVE) mg/dL Urine Glucose (UA) NEGATIVE (NEGATIVE) mg/dL Urine Ketones NEGATIVE (NEGATIVE) mg/dL Urine Occult Blood SMALL H (NEGATIVE) Urine Nitrite NEGATIVE (NEGATIVE) Urine Bilirubin NEGATIVE (NEGATIVE) Urine Urobilinogen 0.2 (<2.0) EU/dL Ur Leukocyte Esterase NEGATIVE (NEGATIVE) Urine RBC 3-5 (0-2/HPF) Urine WBC 1-3 (0-5/HPF) Ur Epithelial Cells FEW (NONE-FEW) Urine Bacteria 1+ H (NEGATIVE) Urine Mucus LIGHT (NONE-MOD) Urine HCG, Qual NEGATIVE (NEGATIVE) 04/28/20 04/28/20 Range/Units 20:55 20:55 WBC (4.0-11.0) K/uL RBC (4.30-5.90) M/uL Hgb (12.0-16.0) g/dL Hct (36.0-46.0) % MCV (80.0-98.0) fL MCH (27.0-32.0) pg MCHC (31.0-37.0) g/dL RDW Std Deviation (28.0-62.0) fl RDW Coeff of Lukas (11.0-15.0) % Plt Count (150-400) K/uL MPV (7.40-12.00) fL Neut % (Auto) (48.0-80.0) % Lymph % (Auto) (16.0-40.0) % [place] % (Auto) (0.0-15.0) % Eos % (Auto) (0.0-7.0) % Baso % (Auto) (0.0-1.5) % Neut # (Auto) (1.4-5.7) K/uL Lymph # (Auto) (0.6-2.4) K/uL [place] # (Auto) (0.0-0.8) K/uL Eos # (Auto) (0.0-0.7) K/uL Baso # (Auto) (0.0-0.1) K/uL Nucleated RBC % /100WBC Nucleated RBCs # K/uL INR 1.01 Sodium 139 (136-145) mmol/L Potassium 3.6 (3.5-5.1) mmol/L Chloride 103 (98-107) mmol/L Carbon Dioxide 22.8 (21.0-32.0) mmol/L BUN 16 (7.0-18.0) mg/dL Creatinine 0.8 (0.6-1.0) mg/dL Est Cr Clr Drug Dosing 63.79 mL/min Estimated GFR (MDRD) > 60.0 ml/min Glucose 119 H (74-106) mg/dL Calcium 9.6 (8.5-10.1) mg/dL Magnesium 2.0 (1.8-2.4) mg/dL Total Bilirubin 0.2 (0.2-1.0) mg/dL AST 30 (15-37) IU/L ALT 54 (14-63) IU/L Alkaline Phosphatase 94 (46-116) U/L Troponin I < 0.050 (0.000-0.056) ng/mL Total Protein 7.5 (6.4-8.2) g/dL Albumin 3.7 (3.4-5.0) g/dL Globulin 3.8 (2.6-4.0) g/dL Albumin/Globulin Ratio 1.0 (0.9-1.6) Lipase 208 (73-393) U/L Urine Color Urine Appearance Urine pH (5.0-8.0) Ur Specific [place] (1.001-1.035) Urine Protein (NEGATIVE) mg/dL Urine Glucose (UA) (NEGATIVE) mg/dL Urine Ketones (NEGATIVE) mg/dL Urine Occult Blood (NEGATIVE) Urine Nitrite (NEGATIVE) Urine Bilirubin (NEGATIVE) Urine Urobilinogen (<2.0) EU/dL Ur Leukocyte Esterase (NEGATIVE) Urine RBC (0-2/HPF) Urine WBC (0-5/HPF) Ur Epithelial Cells (NONE-FEW) Urine Bacteria (NEGATIVE) Urine Mucus (NONE-MOD) Urine HCG, Qual (NEGATIVE) Meds: Medications Generic Name Dose Route Start Last Admin Trade Name Freq PRN Reason Stop Dose Admin Sodium Chloride 10 ml 04/28/20 20:31 Saline Flush FLUSH ASDIRECTED PRN Keep Vein Open Sodium Chloride 2.5 ml 04/28/20 20:31 Saline Flush FLUSH ASDIRECTED PRN Keep Vein Open Discontinued Medications Generic Name Dose Route Start Last Admin Trade Name Freq PRN Reason Stop Dose Admin Dicyclomine HCl 10 mg 04/28/20 22:09 04/28/20 22:20 Bentyl PO 04/28/20 22:10 10 mg ONETIME ONE Administration Lactated Ringer's 1,000 mls @ 999 mls/hr 04/28/20 20:34 04/28/20 21:02 Ringers, Lactated IV 04/28/20 21:34 999 mls/hr .BOLUS ONE Administration Iopamidol 100 ml 04/28/20 21:19 04/28/20 21:20 Isovue Multipack-370 (76%) IVPUSH 04/28/20 21:20 100 ml ONETIME STA Administration Morphine Sulfate 4 mg 04/28/20 20:34 04/28/20 21:02 Morphine IVPUSH 04/28/20 20:35 4 mg ONETIME ONE Administration Ondansetron HCl 4 mg 04/28/20 20:34 04/28/20 21:01 Zofran IVPUSH 04/28/20 20:35 4 mg ONETIME ONE Administration - Re-Assessments/Exams Free Text/Narrative Re-Assessment/Exam: 04/28/20 23:20 After Bentyl in the ER, her abdominal pain is completely resolved. I performed a repeat exam and did not appreciate new abnormal findings. Patient exhibits normal vital signs and repeat abdominal exam did not demonstrate any tenderness in the right lower quadrant or left lower quadrant or periumbilicus or right upper quadrant or left upper quadrant. I do not suspect appendicitis.. I advised the patient to return to the ER for reevaluation if symptoms worsened, including fever, worsening pain, or any other worrisome symptoms. I instructed the patient to follow up with their PCP within 2-3 days. MEDICAL DECISION MAKING: I reviewed the patients past medical records, lab and radiographic findings. I discussed the case with the patient. My differential diagnosis included: IBS, SBO, appendicitis, UTI. Patient is afebrile with no tachycardia or leukocytosis, I do not suspect infectious etiology warranting surgical consultation. CT did not demonstrate by obstruction or appendicitis or diverticulitis. Urine was clean for UTI. Her pain was completely resolved with Bentyl, clinically consistent with her IBS. I instructed her to follow-up with GI for further assessment. Given strict return precautions Departure - Departure Time of Disposition: 23:25 Disposition: Home, Self-Care 01 Condition: Good Clinical Impression: Abdominal pain - Discharge Information *PRESCRIPTION DRUG MONITORING PROGRAM REVIEWED*: Not Applicable *COPY OF PRESCRIPTION DRUG MONITORING REPORT IN PATIENT ISIDRA: Not Applicable Prescriptions: Dicyclomine [Bentyl] 10 mg PO QIDACANDBED #12 cap Instructions: Abdominal Pain, Adult, [id number] Referrals: PCP,None [Primary Care Provider] - Forms: ED Department Discharge Additional Instructions: The need for follow-up, as well as the timing and circumstances, are variable depending upon the specifics of your emergency department visit. If you don't have a primary care physician on staff, we will provide you with a referral. We always advise you to contact your personal physician following an emergency department visit to inform them of the circumstance of the visit and for follow-up with them and/or the need for any referrals to a consulting specialist. The emergency department will also refer you to a specialist when appropriate. This referral assures that you have the opportunity for follow-up care with a specialist. All of these measure are taken in an effort to provide you with optimal care, which includes your follow-up. Under all circumstances we always encourage you to contact your private physician who remains a resource for coordinating your care. When calling for follow-up care, please make the office aware that this follow-up is from your recent emergency room visit. If for any reason you are refused follow-up, please contact the [facility] Emergency Department at and asked to speak to the emergency department charge nurse. If you do not have a primary care doctor, please follow up with the clinics below within 3-5 days. [facility] [address] [place] [id number] [address] Sepsis Event Note (ED) - Evaluation Sepsis Screening Result: No Definite Risk - Focused Exam Vital Signs: Vital Signs Temp Pulse Resp BP Pulse Ox 04/28/20 22:21 96.5 F L 61 18 150/89 H 97 04/28/20 20:45 70 18 152/54 H 96 04/28/20 20:28 97.7 F 81 18 178/100 H 98 - My Orders Last 24 Hours: My Active Orders 04/28/20 20:31 Cardiac Monitoring [RC] . DIRECTED Pulse Oximetry [RC] ASDIRECTED Sodium Chloride 0.9% [Saline Flush] 10 ml FLUSH ASDIRECTED PRN Sodium Chloride 0.9% [Saline Flush] 2.5 ml FLUSH ASDIRECTED PRN Saline Lock Insert [OM.PC] Stat 04/28/20 20:32 EKG Documentation Completion [RC] STAT - Assessment/Plan Last 24 Hours: My Active Orders 04/28/20 20:31 Cardiac Monitoring [RC] . DIRECTED Pulse Oximetry [RC] ASDIRECTED Sodium Chloride 0.9% [Saline Flush] 10 ml FLUSH ASDIRECTED PRN Sodium Chloride 0.9% [Saline Flush] 2.5 ml FLUSH ASDIRECTED PRN Saline Lock Insert [OM.PC] Stat 04/28/20 20:32 EKG Documentation Completion [RC] STAT
[2020-04-28] MEDS ORDERED: Iopamidol 755 MG/ML 500 ML Multipack Bottle IVPUSH STA (21:19)
--- NOTE | 2020-04-28 21:53 | CT ---
Indication: Right lower quadrant pain. Technique: Multiple contiguous axial images were obtained from the lung bases through the symphysis pubis after the intravenous administration of 100 milliliters Isovue 370. Please note that all CT scans at this facility use dose modulation, iterative reconstruction, and/or weight-based dosing when appropriate to reduce radiation dose to as low as reasonably achievable. Comparison: April 11, 2011. Findings: Bibasilar atelectasis identified. The heart is normal in size. No pericardial effusion is identified. Diffuse fatty infiltration of the liver is identified. The liver is at the upper limits of normal in size. The gallbladder, pancreas, spleen, adrenals, and kidneys are normal. No intrahepatic biliary ductal dilatation is identified. In the pelvis, the urinary bladder is normal. The uterus is normal. Clips are identified on both the right left, consistent with tubal ligation. The ovaries are grossly normal. The small and large bowel are normal in caliber. The appendix is normal in caliber. No fat stranding or fluid collections are identified in the right lower quadrant. No free air or free fluid is identified within the abdomen or pelvis. The aorta is normal in caliber. Mild degenerative changes of the lower lumbar spine are identified. Impression: No evidence of appendicitis. Diffuse fatty infiltration of the liver. Borderline hepatomegaly. Please note that all CT scans at this facility use dose modulation, iterative reconstruction, and/or weight-based dosing when appropriate to reduce radiation dose to as low as reasonably achievable. Dictated by Lydia Akins MD @ Apr 28 2020 9:48PM Signed by Dr. Lydia Akins @ Apr 28 2020 9:52PM
[2020-04-28] MEDS ORDERED: Dicyclomine 10 MG Cap PO ONE (22:09)
[2020-04-28 22:15] LABS: BLOOD UREA NITROGEN,BUN 16 mg/dL (7.0-18.0); CARBON DIOXIDE,CO2 22.8 mmol/L (21.0-32.0); CHLORIDE,CL 103 mmol/L (98-107); GLUCOSE RANDOM 119 mg/dL (74-106); LIPASE 208 U/L (73-393); POTASSIUM,K 3.6 mmol/L (3.5-5.1); SODIUM,NA 139 mmol/L (136-145)
[2020-04-28 23:38] VITALS: BP 143/74; PULSE 82
== END 2020-04-28 23:30 | disposition home or self-care (01) ==
LOC: MW.ED 20:06
DX: R10.31 Right lower quadrant pain (principal); F32.9 Major depressive disorder, single episode, unspecified; E03.9 Hypothyroidism, unspecified; Z79.899 Other long term (current) drug therapy
CPT/HCPCS: 36415; 74177; 80053; 81001; 81025; 83690; 83735; 84484; 85025; 85610; 93005; 96374; 96375; 99284; A9270; J2270; J2405; J7120; Q9967; 93010; 99283

== ENCOUNTER 2020-10-04 07:23 | Emergency (ER) | payer SELFPAY ==
[2020-10-04 07:44] VITALS: PULSE 86
[2020-10-04] MEDS ORDERED: Amoxicillin/Clavulanate K 875-125 MG Tab PO ONE (07:53)
--- NOTE | 2020-10-04 07:57 | EDM.PDOC ---
ED HPI GENERAL MEDICAL PROBLEM - General Chief Complaint: ENT Problem Stated Complaint: BREATHING PROBLEM Time Seen by Provider: 10/04/20 07:28 - History of Present Illness INITIAL COMMENTS - FREE TEXT/NARRATIVE: CHIEF COMPLAINT(S): Cough and sinus pressure HISTORY OF PRESENT ILLNESS: This is a 44-year-old woman with a past medical history of thyroid issues and depression who comes to the emergency department with a chief complaint of cough and sinus pressure. The patient states that for approximately 1-1/2 weeks now she has been experiencing a sinus infection. She states that this led to a nonproductive cough and she describes that her chest is warm but denies any pain. She states that she feels like she is short of breath. She denies any history of asthma or COPD. She denies any overt chest pain. She states that she the cough is productive of greenish sputum and she came into the emergency department because there was a drop of blood in this. She also describes itchy and watery eyes. She states that she does have a subjective fever. She states that her nose is runny at night and she has been using a humidifier, DayQuil and Vicks vapor rub. She states that she does have a mild sore throat. She has been able to drink fluids and states that she does have some seasonal allergies which have not been similar to this. REVIEW OF SYSTEMS: Constitutional: Positive for subjective fever Eyes: Denies eye pain Ears, Nose, Mouth, & Throat: Positive for purulent runny nose, sinus pressure, sore throat Cardiovascular: Denies chest pain Respiratory: Positive for shortness of breath and productive cough Gastrointestinal: Denies Nausea, vomiting, diarrhea, hematochezia. Genitourinary: Denies hematuria Skin:Denies a rash MSK: Denies joint pain Neurological: Denies blurred vision, numbness, tingling, weakness Psychiatric: Denies depression PAST MEDICAL HISTORY: As per history of present illness and as reviewed below otherwise noncontributory. SURGICAL HISTORY: As per history of present illness and as reviewed below otherwise noncontributory. SOCIAL HISTORY: As per history of present illness and as reviewed below otherwise noncontributory. FAMILY HISTORY: As per history of present illness and as reviewed below otherwise noncontributory. EXAMINATION OF ORGAN SYSTEMS/BODY AREAS: Constitutional: Blood pressure is 129/81, heart rate 86, respirate 16 with an oxygen saturation 97% on room air. Temperature 36.4 General: Overall well-appearing woman who is in no acute distress Psychiatric: Appropriate mood and affect. Eyes: No scleral icterus or conjunctival erythema mild conjunctival injection. No purulent eye drainage. ENMT: Moist mucous membranes. No pharyngeal erythema there is some cobblestoning of the posterior pharynx. No tonsillar exudates or swelling. There is those ap pear to be evidence of postnasal drip. Bilateral nasal turbinates are congested with erythema. There is mild sinus tenderness. Bilateral tympanic membranes with mild bulging but no erythema or effusion. Cardiovascular: Regular, rate, and rhythm. No gallops, murmurs, or rubs. Bilateral upper extremity pulses symmetric and intact. No peripheral edema. No JVD. Respiratory: Lungs clear to auscultation bilaterally. No wheezes, rales, or rhonchi. Speaking in full sentences Gastrointestinal: Soft, non-tender, non-distended. Normoactive bowel sounds Genitourinary: No suprapubic tenderness Musculoskeletal: Normal range of motion. Skin: No lesions or abrasions. Neurological: Alert, GCS 15 MEDICAL DECISION MAKING AND COURSE IN THE ED WITH INTERPRETATION/REVIEW OF DIAGNOSTIC STUDIES: This is a 44-year-old woman with a past medical history of thyroid issues and depression with seasonal allergies who comes to the emergency department with 1-1/2 weeks of sinus pressure and purulent nasal drainage and cough. The patient's cough was blood-streaked today however I do believe this is secondary to postnasal drip given the sinus congestion. I did discuss with patient that her vitals are normal at this time and I do recommend that we start Augmentin for a sinus infection. I discussed with her that she should use [id number] Zyrtec, Claritin or Ashlyn for symptomatic relief and Flonase in each nostril twice a day. She is to sleep with a humidifier. I did discuss with her that if she had any new or worsening symptoms she should return to the emergency department. She was amenable discharge at this time and had no further questions. DISPOSITION: The patient was discharged home in stable condition. The patient will follow up with primary care physician in 3 to 5 days CONDITION: Fair PROCEDURES: None FINAL IMPRESSION(S)/DIAGNOSES: 1. Acute bacterial sinusitis 2. Acute worsening of seasonal allergies Alex Siddiqi M.D. Chest Pain Score (Numeric/FACES): 6 - Related Data Allergies Allergy/AdvReac Type Severity Reaction Status Date / Time No Known Allergies Allergy Verified 10/04/20 07:38 Home Meds: Home Meds Levothyroxine 125 mcg PO DAILY 01/04/14 [History] Escitalopram [Lexapro] 20 tab PO DAILY 10/19/14 [History] Amoxicillin/Potassium Clav [Amox Tr-K Clv 875-125 mg Tab] 1 each PO BID #13 tablet 10/04/20 [Rx] Fluticasone Propionate [Flonase] 16 gm .XX BID #1 bottle 10/04/20 [Rx] Past Medical History - Past Health History Medical/Surgical History: Denies Medical/Surgical History HEENT History: Reports: None Cardiovascular History: Reports: None Respiratory History: Reports: None Gastrointestinal History: Reports: Irritable Bowel Syndrome Genitourinary History: Reports: None [employer] History: Reports: Musculoskeletal History: Reports: None Neurological History: Reports: Migraines Psychiatric History: Reports: Depression Endocrine/Metabolic History: Reports: Hypothyroidism, Other (See Below) Other Endocrine/Metabolic History: Pre-diabetes Hematologic History: Reports: None Immunologic History: Reports: None Oncologic (Cancer) History: Reports: None Dermatologic History: Reports: None - Infectious Disease History Infectious Disease History: Reports: Chicken Pox - Past Surgical History Head Surgeries/Procedures: Reports: None HEENT Surgical History: Reports: Naso-Sinus Surgery Other HEENT Surgeries/Procedures: sinus surgery GI Surgical History: Reports: None Female Surgical History: Reports: Tubal Ligation Endocrine Surgical History: Reports: None Neurological Surgical History: Reports: None Social & Family History - Family History Family Medical History: No Pertinent Family History Cardiac: Reports: Hypertension Psychiatric: Reports: Depression Endocrine/Metabolic: Reports: Hypothyroidism - Tobacco Use Tobacco Use Status *Q: Never Tobacco User - Caffeine Use Caffeine Use: Reports: None - Recreational Drug Use Recreational Drug Use: No ED ROS GENERAL - Review of Systems Review Of Systems: See Below ED EXAM, GENERAL - Physical Exam Exam: See Below Course - Vital Signs Last Recorded V/S: Last Vital Signs Temp 36.4 C 10/04/20 07:39 Pulse 86 10/04/20 08:09 Resp 16 10/04/20 07:39 BP 114/78 10/04/20 08:09 Pulse Ox 96 10/04/20 08:09 - Orders/Labs/Meds Meds: Medications Discontinued Medications Generic Name Dose Route Start Last Admin Trade Name Kwesi PRN Reason Stop Dose Admin Amoxicillin/Clavulanate Potassium 1 tab 10/04/20 07:53 10/04/20 08:08 Amoxicillin/Clavulanate K 875-125 Mg Tab PO 10/04/20 07:54 1 tab ONETIME ONE Administration Departure - Departure Time of Disposition: 07:55 Disposition: Home, Self-Care 01 Condition: Fair Clinical Impression: Sinusitis, Post-nasal drip, Seasonal allergies - Discharge Information *PRESCRIPTION DRUG MONITORING PROGRAM REVIEWED*: No *COPY OF PRESCRIPTION DRUG MONITORING REPORT IN PATIENT ISIDRA: No Prescriptions: Amoxicillin/Potassium Clav [Amox Tr-K Clv 875-125 mg Tab] 1 each PO BID #13 tablet Fluticasone Propionate [Flonase] 16 gm .XX BID #1 bottle Instructions: Sinusitis, Adult, [id number], Allergic Rhinitis, Adult, [id number], Postnasal Drip Referrals: PCP,None [Primary Care Provider] - Forms: ED Department Discharge Additional Instructions: You were evaluated today on an emergent basis. At this time your vitals were normal and you did not have a fever. I do recommend that you take amoxicillin clavulanic acid until antibiotics are completed. In addition given that you have a history of allergies I do recommend that you take Zyrtec, Claritin, Ashlyn of your preference 1 time a day in addition to Flonase 1 spray each nostril twice a day. I do recommend that you also purchase [id number] [place] nasal spray and use this to help with your congestion. Please use Tylenol and Motrin for pain relief. If you have any worsening symptoms you are welcome to return to the emergency department. Otherwise please follow-up with your primary care physician. [facility] - [facility] [address] [place] [id number] [address] The patient is informed of any results of their evaluation and diagnostic workup and all questions are answered. They are given discharge instructions and return precautions. The patient is stable for discharge. The patient states they understand and agree with the plan and that they will return if their symptoms get worse or if they have any new concerns. The following information is given to patients seen in the emergency department who are being discharged to home. This information is to outline your options for follow-up care. We provide all patients seen in our emergency department with a follow-up referral. The need for follow-up, as well as the timing and circumstances, are variable depending upon the specifics of your emergency department visit. If you don't have a primary care physician on staff, we will provide you with a referral. We always advise you to contact your personal physician following an emergency department visit to inform them of the circumstance of the visit and for follow-up with them and/or the need for any referrals to a consulting specialist. The emergency department will also refer you to a specialist when appropriate. This referral assures that you have the opportunity for follow-up care with a specialist. All of these measure are taken in an effort to provide you with optimal care, which includes your follow-up. Under all circumstances we always encourage you to contact your private physician who remains a resource for coordinating your care. When calling for follow-up care, please make the office aware that this follow-up is from your recent emergency room visit. If for any reason you are refused follow-up, please contact the [facility] Emergency Department at and asked to speak to the emergency department charge nurse. Sepsis Event Note (ED) - Evaluation Sepsis Screening Result: No Definite Risk
[2020-10-04 08:11] VITALS: BP 114/78
== END 2020-10-04 08:11 | disposition home or self-care (01) ==
LOC: MW.ED 07:23
DX: J01.90 Acute sinusitis, unspecified (principal); B96.89 Other specified bacterial agents as the cause of diseases classified elsewhere; J30.2 Other seasonal allergic rhinitis
CPT/HCPCS: 99283; A9270

== ENCOUNTER 2020-12-22 04:42 | Emergency (ER) | payer SELFPAY ==
[2020-12-22] MEDS ORDERED: Ketorolac 30 MG/ML SDV IVPUSH ONE (05:01)
--- NOTE | 2020-12-22 05:01 | EDM.PDOC ---
ED HPI GENERAL MEDICAL PROBLEM - General Stated Complaint: LOWER BACK PAIN, KIDNEY INFECTION Time Seen by Provider: 12/22/20 04:49 - History of Present Illness INITIAL COMMENTS - FREE TEXT/NARRATIVE: 45-year-old female presents with concern for urinary tract infection. Patient states that starting yesterday she started to have increased urinary frequency. She is not sure about hematuria as she is currently on her menstrual cycle. She reports that it is 2 weeks early at this time and that she has had shorter cycles that have been less heavy over the last 2 months. Patient denies dysuria. She reports a constant now 6 out of 10 bilateral flank and back pain. Does not worsen with movement. It is now constant. Yesterday it was more intermittent. No fevers patient otherwise feels well. No anterior abdominal pain no nausea or vomiting. flank Pain Score (Numeric/FACES): 7 - Related Data Allergies Allergy/AdvReac Type Severity Reaction Status Date / Time No Known Allergies Allergy Verified 12/22/20 05:00 Home Meds: Home Meds Levothyroxine 125 mcg PO DAILY 01/04/14 [History] Escitalopram [Lexapro] 20 tab PO DAILY 10/19/14 [History] cephALEXin [Keflex] 500 mg PO BID 5 Days #9 cap 12/22/20 [Rx] Past Medical History - Past Health History Medical/Surgical History: Denies Medical/Surgical History HEENT History: Reports: None Cardiovascular History: Reports: None Respiratory History: Reports: None Gastrointestinal History: Reports: Irritable Bowel Syndrome Genitourinary History: Reports: None [employer] History: Reports: Musculoskeletal History: Reports: None Neurological History: Reports: Migraines Psychiatric History: Reports: Depression Endocrine/Metabolic History: Reports: Hypothyroidism, Other (See Below) Other Endocrine/Metabolic History: Pre-diabetes Hematologic History: Reports: None Immunologic History: Reports: None Oncologic (Cancer) History: Reports: None Dermatologic History: Reports: None - Infectious Disease History Infectious Disease History: Reports: Chicken Pox - Past Surgical History Head Surgeries/Procedures: Reports: None HEENT Surgical History: Reports: Naso-Sinus Surgery Other HEENT Surgeries/Procedures: sinus surgery GI Surgical History: Reports: None Female Surgical History: Reports: Tubal Ligation Endocrine Surgical History: Reports: None Neurological Surgical History: Reports: None Social & Family History - Family History Family Medical History: No Pertinent Family History Cardiac: Reports: Hypertension Psychiatric: Reports: Depression Endocrine/Metabolic: Reports: Hypothyroidism - Caffeine Use Caffeine Use: Reports: None ED ROS GENERAL - Review of Systems Review Of Systems: See Below Free Text/Narrative/Comment: General: No fever. Respiratory: No shortness of breath. Cardiac: No chest pain. Gastrointestinal: No nausea, vomiting or abdominal pain. Urinary: Per HPI Musculoskeletal: No myalgias/arthralgias. Neurologic: No headache. ED EXAM, GENERAL - Physical Exam Exam: See Below Free Text/Narrative:: General Appearance: No acute distress, appears comfortable Skin: No rash HEENT: Normocephalic/atraumatic, sclera anicteric, mucous membranes moist Neck: Normal range of motion Chest and Lungs: Bilateral breath sounds, clear to auscultation Cardiovascular: Regular rate and rhythm, no murmur Abdomen: Soft, non-tender Back: Bilateral CVA tenderness, no midline tenderness step-off or deformity Musculoskeletal: No edema or tenderness Neurologic: Awake, alert, no obvious deficits, moving all extremities Psychiatric: Appropriate, cooperative Course - Vital Signs Last Recorded V/S: Last Vital Signs Temp 97 F 12/22/20 04:55 Pulse 72 12/22/20 04:55 Resp 18 12/22/20 04:55 BP 139/77 12/22/20 04:55 Pulse Ox 97 12/22/20 04:55 - Orders/Labs/Meds Orders: Active Orders 24 hr Category Date Time Status cephALEXin [Keflex] Med 12/22/20 05:49 Once 500 mg PO ONETIME ONE Labs: Laboratory Tests 12/22/20 12/22/20 12/22/20 Range/Units 04:48 05:00 05:00 WBC 8.94 (4.0-11.0) K/uL RBC 4.18 L (4.30-5.90) M/uL Hgb 13.6 (12.0-16.0) g/dL Hct 39.8 (36.0-46.0) % MCV 95.2 (80.0-98.0) fL MCH 32.5 H (27.0-32.0) pg MCHC 34.2 (31.0-37.0) g/dL RDW Std Deviation 43.9 (28.0-62.0) fl RDW Coeff of Lukas 13 (11.0-15.0) % Plt Count 307 (150-400) K/uL MPV 10.00 (7.40-12.00) fL Neut % (Auto) 53.0 (48.0-80.0) % Lymph % (Auto) 35.7 (16.0-40.0) % [place] % (Auto) 6.5 (0.0-15.0) % Eos % (Auto) 4.6 (0.0-7.0) % Baso % (Auto) 0.2 (0.0-1.5) % Neut # (Auto) 4.7 (1.4-5.7) K/uL Lymph # (Auto) 3.2 H (0.6-2.4) K/uL [place] # (Auto) 0.6 (0.0-0.8) K/uL Eos # (Auto) 0.4 (0.0-0.7) K/uL Baso # (Auto) 0.0 (0.0-0.1) K/uL Nucleated RBC % 0.0 /100WBC Nucleated RBCs # 0 K/uL Sodium 139 (136-145) mmol/L Potassium 4.1 (3.5-5.1) mmol/L Chloride 103 (98-107) mmol/L Carbon Dioxide 26.1 (21.0-32.0) mmol/L BUN 18 (7.0-18.0) mg/dL Creatinine 0.8 (0.6-1.0) mg/dL Est Cr Clr Drug Dosing 79.07 mL/min Estimated GFR (MDRD) > 60.0 ml/min Glucose 142 H (74-106) mg/dL Calcium 8.5 (8.5-10.1) mg/dL Urine Color Urine Appearance Urine pH (5.0-8.0) Ur Specific [place] (1.001-1.035) Urine Protein (NEGATIVE) mg/dL Urine Glucose (UA) (NEGATIVE) mg/dL Urine Ketones (NEGATIVE) mg/dL Urine Occult Blood (NEGATIVE) Urine Nitrite (NEGATIVE) Urine Bilirubin (NEGATIVE) Urine Urobilinogen (<2.0) EU/dL Ur Leukocyte Esterase (NEGATIVE) Urine RBC (0-2/HPF) Urine WBC (0-5/HPF) Ur Epithelial Cells (NONE-FEW) Urine Bacteria (NEGATIVE) Urine HCG, Qual NEGATIVE (NEGATIVE) 12/22/20 Range/Units 05:20 WBC (4.0-11.0) K/uL RBC (4.30-5.90) M/uL Hgb (12.0-16.0) g/dL Hct (36.0-46.0) % MCV (80.0-98.0) fL MCH (27.0-32.0) pg MCHC (31.0-37.0) g/dL RDW Std Deviation (28.0-62.0) fl RDW Coeff of Lukas (11.0-15.0) % Plt Count (150-400) K/uL MPV (7.40-12.00) fL Neut % (Auto) (48.0-80.0) % Lymph % (Auto) (16.0-40.0) % [place] % (Auto) (0.0-15.0) % Eos % (Auto) (0.0-7.0) % Baso % (Auto) (0.0-1.5) % Neut # (Auto) (1.4-5.7) K/uL Lymph # (Auto) (0.6-2.4) K/uL [place] # (Auto) (0.0-0.8) K/uL Eos # (Auto) (0.0-0.7) K/uL Baso # (Auto) (0.0-0.1) K/uL Nucleated RBC % /100WBC Nucleated RBCs # K/uL Sodium (136-145) mmol/L Potassium (3.5-5.1) mmol/L Chloride (98-107) mmol/L Carbon Dioxide (21.0-32.0) mmol/L BUN (7.0-18.0) mg/dL Creatinine (0.6-1.0) mg/dL Est Cr Clr Drug Dosing mL/min Estimated GFR (MDRD) ml/min Glucose (74-106) mg/dL Calcium (8.5-10.1) mg/dL Urine Color RED Urine Appearance CLOUDY Urine pH 5.5 (5.0-8.0) Ur Specific [place] >= 1.030 (1.001-1.035) Urine Protein 100 H (NEGATIVE) mg/dL Urine Glucose (UA) NEGATIVE (NEGATIVE) mg/dL Urine Ketones NEGATIVE (NEGATIVE) mg/dL Urine Occult Blood LARGE H (NEGATIVE) Urine Nitrite POSITIVE H (NEGATIVE) Urine Bilirubin SMALL H (NEGATIVE) Urine Urobilinogen 1.0 (<2.0) EU/dL Ur Leukocyte Esterase NEGATIVE (NEGATIVE) Urine RBC TOO NUMEROUS TO CT H (0-2/HPF) Urine WBC 8-12 (0-5/HPF) Ur Epithelial Cells MODERATE (NONE-FEW) Urine Bacteria 2+ H (NEGATIVE) Urine HCG, Qual (NEGATIVE) Meds: Medications Discontinued Medications Generic Name Dose Route Start Last Admin Trade Name Monoq PRN Reason Stop Dose Admin Ketorolac Tromethamine 15 mg 12/22/20 05:01 12/22/20 05:11 Ketorolac 30 Mg/Ml Sdv IVPUSH 12/22/20 05:02 15 mg ONETIME ONE Administration Departure - Departure Time of Disposition: 05:50 Disposition: Home, Self-Care 01 Condition: Good Clinical Impression: UTI, Urinary tract infectious disease - Discharge Information *PRESCRIPTION DRUG MONITORING PROGRAM REVIEWED*: Not Applicable *COPY OF PRESCRIPTION DRUG MONITORING REPORT IN PATIENT ISIDRA: Not Applicable Prescriptions: cephALEXin [Keflex] 500 mg PO BID 5 Days #9 cap Instructions: Urinary Tract Infection, Adult Additional Instructions: You were given your first dose of the antibiotic Keflex (cephalexin) here in the ER. Your next dose should be this evening. The total prescription is for 5 days. If your symptoms worsen you develop a fever please call your doctor or return to the ER. The following information is given to patients seen in the emergency department who are being discharged to home. This information is to outline your options for follow-up care. We provide all patients seen in our emergency department with a follow-up referral. The need for follow-up, as well as the timing and circumstances, are variable depending upon the specifics of your emergency department visit. If you don't have a primary care physician on staff, we will provide you with a referral. We always advise you to contact your personal physician following an emergency department visit to inform them of the circumstance of the visit and for follow-up with them and/or the need for any referrals to a consulting specialist. The emergency department will also refer you to a specialist when appropriate. This referral assures that you have the opportunity for follow-up care with a specialist. All of these measure are taken in an effort to provide you with optimal care, which includes your follow-up. Under all circumstances we always encourage you to contact your private physician who remains a resource for coordinating your care. When calling for follow-up care, please make the office aware that this follow-up is from your recent emergency room visit. If for any reason you are refused follow-up, please contact the [facility] Emergency Department at and asked to speak to the emergency department charge nurse. Sepsis Event Note (ED) - Focused Exam Vital Signs: Vital Signs Temp Pulse Resp BP Pulse Ox 12/22/20 04:55 97 F 72 18 139/77 97 - My Orders Last 24 Hours: My Active Orders 12/22/20 05:49 cephALEXin [Keflex] 500 mg PO ONETIME ONE - Assessment/Plan Last 24 Hours: My Active Orders 12/22/20 05:49 cephALEXin [Keflex] 500 mg PO ONETIME ONE Assessment:: 45-year-old female presenting with signs symptoms that are most consistent with UTI possible pyelonephritis. Labs and urinalysis pending. Bilateral nature argues against renal colic nothing suggest AAA or aortic pathology. Fact that it does not worsen with motion makes musculoskeletal back pain less likely. No anterior findings that would suggest diverticulitis or appendicitis or ovarian pathology. Patient is status post tubal ligation so denies possibility of . 0550: Back pain improved with Toradol patient feels tired but otherwise well. CBC is normal renal function normal urinalysis clearly demonstrates UTI. Patient given first dose of Keflex here discharged on a total of 5 days of 500 mg of Keflex twice daily. No indication for urine culture at this point.
[2020-12-22 05:29] LABS: BLOOD UREA NITROGEN,BUN 18 mg/dL (7.0-18.0); CARBON DIOXIDE,CO2 26.1 mmol/L (21.0-32.0); CHLORIDE,CL 103 mmol/L (98-107); GLUCOSE RANDOM 142 mg/dL (74-106); POTASSIUM,K 4.1 mmol/L (3.5-5.1); SODIUM,NA 139 mmol/L (136-145)
[2020-12-22] MEDS ORDERED: Cephalexin 500 MG Cap PO ONE (05:49)
[2020-12-22 06:01] VITALS: BP 136/72; PULSE 70
== END 2020-12-22 06:01 | disposition home or self-care (01) ==
LOC: MW.ED 04:42
DX: N39.0 Urinary tract infection, site not specified (principal); E03.9 Hypothyroidism, unspecified; Z79.899 Other long term (current) drug therapy
CPT/HCPCS: 36415; 80048; 81001; 81025; 85025; 96374; 99283; A9270; J1885

== ENCOUNTER 2021-04-17 17:55 | Emergency (ER) | payer OTHER ==
[2021-04-17 18:25] VITALS: BP 141/70
[2021-04-17] MEDS ORDERED: Ketorolac 30 MG/ML SDV IM ONE (18:37)
--- NOTE | 2021-04-17 18:41 | EDM.PDOC ---
ED HPI GENERAL MEDICAL PROBLEM - General Source of Information: Reports: Patient History Limitations: Reports: No Limitations Head Pain Score (Numeric/FACES): 9 <Pio Miranda - Last Filed: 04/17/21 18:38> <Kal Meza - Last Filed: 04/17/21 20:00> - General Chief Complaint: Head Injury Stated Complaint: FALL 2 DAYS AGO, DIZZINESS, MIGRAINE Time Seen by Provider: 04/17/21 18:16 - History of Present Illness INITIAL COMMENTS - FREE TEXT/NARRATIVE: Is a 45-year-old female who presents today after head injury 2 days ago. She was at work when she stood up and hit her head on the register. She denies any LOC. She is states that she has some light sensitivity since hitting her head but has no vision changes no numbness within her body other complaints. (Pio Miranda) - Related Data Allergies Allergy/AdvReac Type Severity Reaction Status Date / Time No Known Allergies Allergy Verified 04/17/21 18:18 Home Meds: Home Meds Levothyroxine 125 mcg PO DAILY 01/04/14 [History] Escitalopram [Lexapro] 20 tab PO DAILY 10/19/14 [History] Ondansetron [Zofran ODT] 4 mg PO Q6H PRN #8 tab.dis 04/17/21 [Rx] Past Medical History - Past Health History Medical/Surgical History: Denies Medical/Surgical History HEENT History: Reports: None Cardiovascular History: Reports: None Respiratory History: Reports: None Gastrointestinal History: Reports: Irritable Bowel Syndrome Genitourinary History: Reports: None 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: Reports: Musculoskeletal History: Reports: None Neurological History: Reports: Migraines Psychiatric History: Reports: Depression Endocrine/Metabolic History: Reports: Hypothyroidism, Other (See Below) Other Endocrine/Metabolic History: Pre-diabetes 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 Pump Model and Oracle Technical Architect: None Hematologic History: Reports: None Immunologic History: Reports: None Oncologic (Cancer) History: Reports: None Dermatologic History: Reports: None - Infectious Disease History Infectious Disease History: Reports: Chicken Pox - Past Surgical History Head Surgeries/Procedures: Reports: None HEENT Surgical History: Reports: Naso-Sinus Surgery Other HEENT Surgeries/Procedures: sinus surgery GI Surgical History: Reports: None Female Surgical History: Reports: Tubal Ligation Endocrine Surgical History: Reports: None Neurological Surgical History: Reports: None <MirandaPio - Last Filed: 04/17/21 18:38> Social & Family History - Family History Family Medical History: No Pertinent Family History Cardiac: Reports: Hypertension Psychiatric: Reports: Depression Endocrine/Metabolic: Reports: Hypothyroidism - Tobacco Use Tobacco Use Status *Q: Never Tobacco User - Caffeine Use Caffeine Use: Reports: Coffee - Recreational Drug Use Recreational Drug Use: No <Pio Miranda - Last Filed: 04/17/21 18:38> ED ROS GENERAL - Review of Systems Review Of Systems: See Below Constitutional: Reports: No Symptoms HEENT: Reports: No Symptoms Respiratory: Reports: No Symptoms Cardiovascular: Reports: No Symptoms Endocrine: Reports: No Symptoms GI/Abdominal: Reports: No Symptoms : Reports: No Symptoms Musculoskeletal: Reports: No Symptoms Skin: Reports: No Symptoms Neurological: Reports: Headache Psychiatric: Reports: No Symptoms Hematologic/Lymphatic: Reports: No Symptoms Immunologic: Reports: No Symptoms <Pio Miranda - Last Filed: 04/17/21 18:38> ED EXAM, HEAD INJURY - Physical Exam Exam: See Below Exam Limited By: No Limitations General Appearance: Alert, WD/WN, No Apparent Distress Head: Atraumatic, Normocephalic Nexus Criteria: No: Posterior, Midline Cervical Tenderness, Evidence of Intoxication, Altered Level of Consciousness, Focal Neurological Deficit, Painful Distraction Injuries Eyes: Bilateral Eye: EOMI, PERRL Nose: Normal Inspection Throat/Mouth: Normal Inspection Neck: Non-Tender Respiratory: No Respiratory Distress, Lungs Clear, Normal Breath Sounds Cardiovascular: Normal Peripheral Pulses, Regular Rate, Rhythm GI/Abdominal Exam: Normal Bowel Sounds, Soft, Non-Tender Extremities: Normal Inspection, Normal Range of Motion, Non-Tender Neurologic: No Motor/Sensory Deficits, Alert, Normal Mood/Affect, Oriented x 3 - Guin Coma Score Best Eye Response (Sathish): (4) Open Spontaneously Best Verbal Response (Guin): (5) Oriented Best Motor Response (Sathish): (6) Obeys Commands <Pio Miranda - Last Filed: 04/17/21 18:38> Course <Kal Meza - Last Filed: 04/17/21 20:00> - Vital Signs Last Recorded V/S: Last Vital Signs Temp 36.7 C 04/17/21 18:19 Pulse 69 04/17/21 18:19 Resp 16 04/17/21 18:19 BP 141/70 H 04/17/21 18:19 Pulse Ox 96 04/17/21 18:19 - Orders/Labs/Meds Meds: Medications Discontinued Medications Generic Name Dose Route Start Last Admin Trade Name Freq PRN Reason Stop Dose Admin Ketorolac Tromethamine 30 mg 04/17/21 18:37 04/17/21 18:57 Ketorolac 30 Mg/Ml Sdv IM 04/17/21 18:38 30 mg ONETIME ONE Administration Ondansetron HCl 4 mg 04/17/21 19:36 04/17/21 19:54 Ondansetron 4 Mg Tab.Dis PO 04/17/21 19:37 4 mg ONETIME ONE Administration - Re-Assessments/Exams Free Text/Narrative Re-Assessment/Exam: 04/17/21 19:35 Patient was signed out to me by my partner the end of his shift. She has a tentative diagnosis of cerebral come caution from blunt trauma. CT was pending. After the CT she will be sent home with concussion instructions unless there is any need for neurosurgical consultation in which case she may need transfer. The patient got nauseated moving about in a wheelchair but otherwise is neurologically intact at this time. She was a little wobbly when she walked into the emergency department according to her. (Kal Meza) Departure - Departure Time of Disposition: 18:40 Condition: Good - Discharge Information *PRESCRIPTION DRUG MONITORING PROGRAM REVIEWED*: Not Applicable *COPY OF PRESCRIPTION DRUG MONITORING REPORT IN PATIENT ISIDRA: Not Applicable <Pio Miranda - Last Filed: 04/17/21 18:38> - Departure Time of Disposition: 20:00 Condition: Good <Kal Meza - Last Filed: 04/17/21 20:00> - Departure Disposition: Home, Self-Care 01 Clinical Impression: Concussion - Discharge Information Prescriptions: Ondansetron [Zofran ODT] 4 mg PO Q6H PRN #8 tab.dis PRN Reason: Nausea/Vomiting Instructions: Head Injury, Adult, Concussion, Adult, [id number] Referrals: PCP,None [Primary Care Provider] - Forms: ED Department Discharge Additional Instructions: Your prescription went to [place] [facility] [address] [place] [id number] [facility] [address] [place] [id number] The following information is given to patients seen in the emergency department who are being discharged to home. This information is to outline your options for follow-up care. We provide all patients seen in our emergency department with a follow-up referral. The need for follow-up, as well as the timing and circumstances, are variable depending upon the specifics of your emergency department visit. If you don't have a primary care physician on staff, we will provide you with a referral. We always advise you to contact your personal physician following an emergency department visit to inform them of the circumstance of the visit and for follow-up with them and/or the need for any referrals to a consulting specialist. The emergency department will also refer you to a specialist when appropriate. This referral assures that you have the opportunity for follow-up care with a specialist. All of these measure are taken in an effort to provide you with optimal care, which includes your follow-up. Under all circumstances we always encourage you to contact your private physician who remains a resource for coordinating your care. When calling for follow-up care, please make the office aware that this follow-up is from your recent emergency room visit. If for any reason you are refused follow-up, please contact the [facility] Emergency Department at and asked to speak to the emergency department charge nurse. Sepsis Event Note (ED) - Evaluation Sepsis Screening Result: No Definite Risk <Pio Miranda - Last Filed: 04/17/21 18:38> - Focused Exam Vital Signs: Vital Signs Temp Pulse Resp BP Pulse Ox 04/17/21 18:19 36.7 C 69 16 141/70 H 96 <Pio Miranda - Last Filed: 04/17/21 18:38> - Assessment/Plan Plan: Patient is a 45-year-old female who presents today after head injury 2 days ago. Patient had no LOC at the time of the incident. Patient exam looks well has no neurological deficit or complaint. We will obtain a CT scan here provide pain control and reassess. Patient will be signed oncoming provider patiently has concussion. (Pio Miranda)
[2021-04-17] MEDS ORDERED: Ondansetron 4 MG Tab.DIS PO ONE (19:36)
--- NOTE | 2021-04-17 19:42 | CT ---
INDICATION: Head injury TECHNIQUE: CT head without contrast. COMPARISON: January 23, 2011 FINDINGS: CSF spaces: Within normal limits for age. Brain parenchyma: The rivas-white differentiation is normal. No sign of mass, hemorrhage, or midline shift. Skull base and calvarium: Thickening of the bilateral maxillary sinus mucosa. The mastoid air cells demonstrate no acute or significant findings. The visualized orbits are grossly unremarkable. No skull fractures. Multiple soft tissue and calcified nodules in the scalp may represent sebaceous cysts. IMPRESSION: No acute intracranial abnormality. Please note that all CT scans at this facility use dose modulation, iterative reconstruction, and/or weight-based dosing when appropriate to reduce radiation dose to as low as reasonably achievable. Dictated by Sandi Martinez MD @ 04/17/2021 7:41:11 PM (Electronically Signed)
[2021-04-17 20:03] VITALS: PULSE 86
== END 2021-04-17 20:07 | disposition home or self-care (01) ==
LOC: MW.ED 17:55
DX: S06.0X0A Concussion without loss of consciousness, initial encounter (principal); E03.9 Hypothyroidism, unspecified; Z79.899 Other long term (current) drug therapy; W22.8XXA Striking against or struck by other objects, initial encounter; Y92.89 Other specified places as the place of occurrence of the external cause; Y99.0 Civilian activity done for income or pay
CPT/HCPCS: 70450; 96372; 99283; A9270; J1885

== ENCOUNTER 2021-05-22 04:32 | Emergency (ER) | payer SELFPAY ==
[2021-05-22] MEDS ORDERED: Acetaminophen 325 MG Tab PO ONE (05:17)
[2021-05-22] MEDS ORDERED: Ibuprofen 600 MG Tab PO ONE (05:17)
--- NOTE | 2021-05-22 05:19 | EDM.PDOC ---
ED HPI GENERAL MEDICAL PROBLEM - General Stated Complaint: SORE THROAT, COUGH Time Seen by Provider: 05/22/21 04:44 - History of Present Illness INITIAL COMMENTS - FREE TEXT/NARRATIVE: HISTORY AND PHYSICAL: History of present illness: Is a healthy 45-year-old female with a history significant for hypothyroidism and depression who presents ER today secondary to symptoms consistent with Covid infection versus viral upper respiratory tract versus sinusitis. Patient ports that she had cough, congestion, sore throat, body aches, headaches for the last 1 to 2 days. Patient denies any vomiting or diarrhea. Patient has any dysuria, frequency, urgency. Patient has any chest pain or shortness of breath. Patient has any abdominal pain or discomfort. Patient ports she been able to tolerate p.o. solids and liquids well. Patient reports that she took a home Covid test yesterday and it was negative. Patient reports that she has continued to have nasal congestion, purulent yellow-green productive cough. Review of systems: As per history of present illness and below otherwise all systems reviewed and negative. Past medical history: As per history of present illness and as reviewed below otherwise noncontributory. Surgical history: As per history of present illness and as reviewed below otherwise noncontributory. Social history: No reported history of drug abuse. Family history: As per history of present illness and as reviewed below otherwise noncontributory. Physical exam: This patient was seen and evaluated during the 2019 SARS-CoV-2 novel coronavirus pandemic period. Community viral transmission is ongoing at time of this encounter and the emergency department is operating under pandemic response procedures. Constitutional: Patient is oriented to person, place, and time. Appears well- developed and well-nourished. No distress. HEENT: Moist mucous membranes. Neck supple, no nuchal rigidity, no photophobia, no Kernig's sign or Brudzinski sign, patient does not present with signs or symptoms of be consistent with meningitis. Head: Normocephalic and atraumatic Eyes: Right eye exhibits no discharge. Left eye exhibits no discharge. No scleral icterus Neck: Normal range of motion. No tracheal deviation present. Cardiovascular: Normal rate and regular rhythm. Pulmonary: Effort normal, no respiratory distress. No wheezing rales or rhonchi Abdominal: No distention Musculoskeletal: Normal range of motion Neurologic: Alert and oriented to person, place and time. Skin: [place], warm and dry. Psychiatric: Normal mood and affect. Behavior is normal. Judgment and thought content normal. Nursing note and vital signs have been reviewed Diagnostics: Covid/influenza Therapeutics: Motrin/Tylenol/Zithromax Assessment and plan: 45-year-old female who presents to the ER today secondary to signs and symptoms consistent with Covid pneumonia/influenza. Patient will have a Covid, influenza test as well as a strep screen performed. Patient was given ibuprofen and acetaminophen here in the ED. Patient is clinically hemodynamically stable in the ED. Patient we have started on a Z-Juan José secondary to concern for possible bronchiti/sinusitis/cough. Reassessment at the time of disposition demonstrates that the patient is in no acute distress. The patient has remained stable throughout the entire ED visit and is without objective evidence for acute process requiring urgent intervention or hospitalization. The patient is stable for discharge, counseling is provided as documented above, discussed symptomatic treatment and specific conditions for return. I have spoken with the patient/caregiver and discussed todays findings, in addition to providing specific details for the plan of care. Questions are answered and there is agreement with the plan. Definitive disposition and diagnosis as appropriate pending reevaluation and review of above. - Related Data Allergies Allergy/AdvReac Type Severity Reaction Status Date / Time No Known Allergies Allergy Verified 05/22/21 05:08 Home Meds: Home Meds Levothyroxine 125 mcg PO DAILY 01/04/14 [History] Escitalopram [Lexapro] 20 tab PO DAILY 10/19/14 [History] Past Medical History - Past Health History Medical/Surgical History: Denies Medical/Surgical History HEENT History: Reports: None Cardiovascular History: Reports: None Respiratory History: Reports: None Gastrointestinal History: Reports: Irritable Bowel Syndrome Genitourinary History: Reports: None HAND MOLDER History: Reports: Musculoskeletal History: Reports: None Neurological History: Reports: Migraines Psychiatric History: Reports: Depression Endocrine/Metabolic History: Reports: Hypothyroidism, Other (See Below) Other Endocrine/Metabolic History: Pre-diabetes Insulin Pump Model and Metal Furniture Repairer: None Hematologic History: Reports: None Immunologic History: Reports: None Oncologic (Cancer) History: Reports: None Dermatologic History: Reports: None - Infectious Disease History Infectious Disease History: Reports: Chicken Pox - Past Surgical History Head Surgeries/Procedures: Reports: None HEENT Surgical History: Reports: Naso-Sinus Surgery Other HEENT Surgeries/Procedures: sinus surgery GI Surgical History: Reports: None Female Surgical History: Reports: Tubal Ligation Endocrine Surgical History: Reports: None Neurological Surgical History: Reports: None Social & Family History - Family History Family Medical History: No Pertinent Family History Cardiac: Reports: Hypertension Psychiatric: Reports: Depression Endocrine/Metabolic: Reports: Hypothyroidism - Caffeine Use Caffeine Use: Reports: Coffee ED ROS GENERAL - Review of Systems Review Of Systems: See Below ED EXAM, GENERAL - Physical Exam Exam: See Below Course - Orders/Labs/Meds Orders: Active Orders 24 hr Category Date Time Status COVID-19/FLU A+B [[facility]] Stat Lab 05/22/21 04:43 Received STREP A BY PCR [[facility]] Stat Lab 05/22/21 05:06 Received Departure - Departure Time of Disposition: 05:16 Disposition: Home, Self-Care 01 Condition: Good Clinical Impression: Upper respiratory infection - Discharge Information Instructions: Viral Respiratory Infection, [id number] Referrals: PCP,None [Primary Care Provider] - Additional Instructions: You were seen and evaluated in ER today secondary to signs and symptoms consistent with a viral upper respiratory infection. You will be given a prescription for ibuprofen and Zithromax to take. You can get this out of the [facility] system since the pharmacies are closed today. Please go home and get plenty of rest, drink plenty liquids, take the antibiotic as directed. He can take ibuprofen 600 mg every 6 hours as needed for body aches, headaches or fevers. He can also add acetaminophen 650 mg every 6 hours as needed for muscle aches as well. The following information is given to patients seen in the emergency department who are being discharged to home. This information is to outline your options for follow-up care. We provide all patients seen in our emergency department with a follow-up referral. The need for follow-up, as well as the timing and circumstances, are variable depending upon the specifics of your emergency department visit. If you don't have a primary care physician on staff, we will provide you with a referral. We always advise you to contact your personal physician following an emergency department visit to inform them of the circumstance of the visit and for follow-up with them and/or the need for any referrals to a consulting specialist. The emergency department will also refer you to a specialist when appropriate. This referral assures that you have the opportunity for follow-up care with a specialist. All of these measure are taken in an effort to provide you with optimal care, which includes your follow-up. Under all circumstances we always encourage you to contact your private physician who remains a resource for coordinating your care. When calling for follow-up care, please make the office aware that this follow-up is from your recent emergency room visit. If for any reason you are refused follow-up, please contact the [facility] Emergency Department at and asked to speak to the emergency department charge nurse. [facility] [address] [place] [id number] [facility] [address] [place] [id number] - My Orders Last 24 Hours: My Active Orders 05/22/21 04:43 COVID-19/FLU A+B [[facility]] Stat 05/22/21 05:06 STREP A BY PCR [[facility]] Stat - Assessment/Plan Last 24 Hours: My Active Orders 05/22/21 04:43 COVID-19/FLU A+B [[facility]] Stat 05/22/21 05:06 STREP A BY PCR [[facility]] Stat
[2021-05-22 05:27] LABS: CORONAVIRUS COVID-19 NAA NEGATIVE (NEGATIVE); INFLUENZA A NAA NEGATIVE (NEGATIVE); INFLUENZA B NAA NEGATIVE (NEGATIVE)
[2021-05-22 05:53] VITALS: BP 175/100; PULSE 98
== END 2021-05-22 06:00 | disposition home or self-care (01) ==
LOC: MW.ED 04:32
DX: J06.9 Acute upper respiratory infection, unspecified (principal); E03.9 Hypothyroidism, unspecified; Z20.822 Contact with and (suspected) exposure to COVID-19; Z79.899 Other long term (current) drug therapy
CPT/HCPCS: 0240U; 87651; 99283; A9270

== ENCOUNTER 2021-07-24 18:22 | Emergency (ER) | payer BC ==
[2021-07-24] MEDS ORDERED: Ketorolac 30 MG/ML SDV IM ONE (19:16)
[2021-07-24] MEDS ORDERED: Dexamethasone 4 MG Tab PO STA (20:56)
[2021-07-24 21:11] VITALS: BP 148/62; PULSE 84
== END 2021-07-24 21:11 | disposition home or self-care (01) ==
LOC: MW.ED 18:22
DX: J02.9 Acute pharyngitis, unspecified (principal); F32.A Depression, unspecified
CPT/HCPCS: 70360; 96372; 99284; J1885; J8540

== ENCOUNTER 2021-10-29 08:52 | Emergency (ER) | payer BC ==
[2021-10-29] MEDS ORDERED: Acetaminophen 500 MG Tab PO ONE (09:15)
[2021-10-29] MEDS ORDERED: Ibuprofen 600 MG Tab PO ONE (09:15)
[2021-10-29 10:26] VITALS: BP 157/74; PULSE 65
== END 2021-10-29 10:26 | disposition home or self-care (01) ==
LOC: MW.ED 08:52
DX: S89.91XA Unspecified injury of right lower leg, initial encounter (principal); Z79.899 Other long term (current) drug therapy; X50.1XXA Overexertion from prolonged static or awkward postures, initial encounter
CPT/HCPCS: 73562; 99283; A9270

== ENCOUNTER 2021-12-19 09:11 | Emergency (ER) | payer BC ==
[2021-12-19] MEDS ORDERED: Metoclopramide 10 MG/2 ML SDV IVPUSH ONE (09:51)
[2021-12-19] MEDS ORDERED: Sodium Chloride 0.9% 1,000 ML IV ONE (09:51)
[2021-12-19] MEDS ORDERED: diphenhydrAMINE 50 MG/ML SDV IVPUSH ONE (09:51)
[2021-12-19 10:30] LABS: CARBON DIOXIDE,CO2 27.8 mmol/L (21.0-32.0); POTASSIUM,K 4.1 mmol/L (3.5-5.1)
[2021-12-19] MEDS ORDERED: Iopamidol 755 MG/ML 500 ML Multipack Bottle IVPUSH STA (11:09)
[2021-12-19] MEDS ORDERED: Ketorolac 30 MG/ML SDV IVPUSH ONE (11:26)
[2021-12-19 12:34] VITALS: BP 127/56; PULSE 66
== END 2021-12-19 12:35 | disposition home or self-care (01) ==
LOC: MW.ED 09:11
DX: R51.9 Headache, unspecified (principal); I10 Essential (primary) hypertension; E03.9 Hypothyroidism, unspecified; Z79.899 Other long term (current) drug therapy; Z20.822 Contact with and (suspected) exposure to COVID-19
CPT/HCPCS: 36415; 70450; 70496; 70498; 80053; 83735; 85025; 85610; 85730; 87635; 96361; 96374; 96375; 99284; J1200; J1885; J2765; J7030; Q9967; U0002

== ENCOUNTER 2022-08-28 11:18 | Emergency (ER) | payer BC ==
[2022-08-28] MEDS ORDERED: Sodium Chloride 0.9% 1,000 ML IV ONE (11:32)
[2022-08-28] MEDS ORDERED: Ondansetron 4 MG/2 ML SDV IVPUSH ONE (12:50)
[2022-08-28] MEDS ORDERED: Morphine 4 MG/ML Syringe IVPUSH ONE (12:50)
[2022-08-28 13:25] LABS: CARBON DIOXIDE,CO2 23.5 mmol/L (21.0-32.0); POTASSIUM,K 4.1 mmol/L (3.5-5.1)
[2022-08-28] MEDS ORDERED: Iopamidol 755 MG/ML 500 ML Multipack Bottle IVPUSH ONE (13:45)
[2022-08-28 15:05] VITALS: BP 130/77; PULSE 78
== END 2022-08-28 15:03 | disposition home or self-care (01) ==
LOC: MW.ED 11:18
DX: A08.4 Viral intestinal infection, unspecified (principal); I10 Essential (primary) hypertension; E03.9 Hypothyroidism, unspecified; Z79.899 Other long term (current) drug therapy
CPT/HCPCS: 36415; 74177; 80053; 81003; 85025; 96361; 96374; 96375; 99284; J2270; J2405; J7030; Q9967

== ENCOUNTER 2022-12-04 10:24 | Emergency (ER) | payer BC ==
[2022-12-04] MEDS ORDERED: Sodium Chloride 0.9% 10 ML Syringe FLUSH PRN (10:36)
[2022-12-04] MEDS ORDERED: Sodium Chloride 0.9% 2.5 ML Syringe FLUSH PRN (10:36)
[2022-12-04 11:09] LABS: BASOPHILS PERCENT AUTO 0.3 % (0.0-1.5); EOSINOPHILS ABSOLUTE AUTO 0.2 K/uL (0.0-0.7); EOSINOPHILS PERCENT AUTO 3.6 % (0.0-7.0); HEMATOCRIT 36.9 % (36.0-46.0); HEMOGLOBIN 12.9 g/dL (12.0-16.0); LYMPHOCYTES ABSOLUTE AUTO 1.8 K/uL (0.6-2.4); LYMPHOCYTES PERCENT AUTO 29.9 % (16.0-40.0); MEAN CORPUSCULAR HEMOGLOBIN 32.5 pg (27.0-32.0); MEAN CORPUSCULAR VOLUME 92.9 fL (80.0-98.0); MONOCYTES ABSOLUTE AUTO 0.3 K/uL (0.0-0.8); MONOCYTES PERCENT AUTO 5.1 % (0.0-15.0); NEUTROPHILS ABSOLUTE AUTO 3.7 K/uL (1.4-5.7); NEUTROPHILS PERCENT AUTO 61.1 % (48.0-80.0); NRBC ABSOLUTE 0 K/uL; PLATELET COUNT,PLT 300 K/uL (150-400); RED BLOOD CELL COUNT 3.97 M/uL (4.30-5.90); WHITE BLOOD CELL COUNT,WBC 6.05 K/uL (4.0-11.0)
[2022-12-04 11:28] LABS: ALBUMIN 3.8 g/dL (3.4-5.0); BILIRUBIN TOTAL 0.3 mg/dL (0.2-1.0); CALCIUM 9.6 mg/dL (8.5-10.1); CARBON DIOXIDE,CO2 27.3 mmol/L (21.0-32.0); CREATININE 0.7 mg/dL (0.6-1.0); EST CRCL DRUG DOSING (CG) 89.4 mL/min; POTASSIUM,K 3.5 mmol/L (3.5-5.1); PROTEIN TOTAL,TP 7.5 g/dL (6.4-8.2)
[2022-12-04 11:32] LABS: MAGNESIUM 1.8 mg/dL (1.8-2.4)
[2022-12-04 11:59] VITALS: BP 142/87; PULSE 66
== END 2022-12-04 11:57 | disposition home or self-care (01) ==
LOC: MW.ED 10:24
DX: R07.89 Other chest pain (principal); I10 Essential (primary) hypertension; E03.9 Hypothyroidism, unspecified; Z79.899 Other long term (current) drug therapy
CPT/HCPCS: 36415; 71045; 80053; 83735; 84484; 85025; 93005; 99285; J3490; 93010; 99283

== ENCOUNTER 2023-05-20 12:31 | Emergency (ER) | payer SELFPAY ==
[2023-05-20] MEDS ORDERED: Sodium Chloride 0.9% 1,000 ML IV ONE (12:32)
[2023-05-20 12:39] LABS: BASOPHILS ABSOLUTE AUTO 0.05 K/uL (0.00-0.20); BASOPHILS PERCENT AUTO 0.7 % (0.0-1.0); EOSINOPHILS ABSOLUTE AUTO 0.27 K/uL (0.00-0.45); EOSINOPHILS PERCENT AUTO 3.6 % (0.0-6.0); HEMATOCRIT 40.5 % (37.0-47.0); HEMOGLOBIN 13.9 g/dL (12.0-16.0); IMMATURE GRAN ABSOLUTE AUTO 0.02 K/uL (0.00-0.05); IMMATURE GRAN PERCENT AUTO 0.3 % (0.0-0.4); LYMPHOCYTES ABSOLUTE AUTO 1.73 K/uL (1.00-4.80); LYMPHOCYTES PERCENT AUTO 22.8 % (24.0-44.0); MEAN CORPUSCULAR HEMOGLOBIN 31.7 pg (28.0-32.0); MEAN CORPUSCULAR HGB CONC 34.3 g/dL (32.0-36.0); MEAN CORPUSCULAR VOLUME 92.5 fL (83.0-99.0); MEAN PLATELET VOLUME 9.2 fL (9.4-12.3); MONOCYTES ABSOLUTE AUTO 0.44 K/uL (0.00-0.80); MONOCYTES PERCENT AUTO 5.8 % (0.0-8.0); NEUTROPHILS ABSOLUTE AUTO 5.07 K/uL (1.80-7.70); NEUTROPHILS PERCENT AUTO 66.8 % (41.0-71.0); PLATELET COUNT,PLT 311 K/uL (150-400); RED BLOOD CELL COUNT 4.38 M/uL (4.10-5.30); WHITE BLOOD CELL COUNT,WBC 7.58 K/uL (3.9-11.3)
[2023-05-20 13:09] LABS: A/G RATIO 0.9 (0.9-1.6); ALBUMIN 3.7 g/dL (3.4-5.0); BILIRUBIN TOTAL 0.3 mg/dL (0.2-1.0); CALCIUM 9.7 mg/dL (8.5-10.1); CARBON DIOXIDE,CO2 24.6 mmol/L (21.0-32.0); CREATININE 0.8 mg/dL (0.6-1.0); EST CRCL DRUG DOSING (CG) 74.26 mL/min; POTASSIUM,K 4.2 mmol/L (3.5-5.1); PROTEIN TOTAL,TP 7.9 g/dL (6.4-8.2)
[2023-05-20 13:19] LABS: CORONAVIRUS COVID-19 NAA NEGATIVE (NEGATIVE); INFLUENZA A NAA NEGATIVE (NEGATIVE); INFLUENZA B NAA NEGATIVE (NEGATIVE)
[2023-05-20 15:21] VITALS: BP 126/56; PULSE 67
== END 2023-05-20 15:19 | disposition home or self-care (01) ==
LOC: MW.ED 12:31
DX: R07.9 Chest pain, unspecified (principal); E03.9 Hypothyroidism, unspecified; I10 Essential (primary) hypertension; Z79.899 Other long term (current) drug therapy; Z20.822 Contact with and (suspected) exposure to COVID-19
CPT/HCPCS: 0240U; 36415; 71045; 80053; 84484; 85025; 93005; 96360; 99285; J7030

== ENCOUNTER 2023-12-31 21:26 | Emergency (ER) | payer BC ==
[2023-12-31] MEDS: Sodium Chloride 0.9% 1,000 ML IV ONE (21:58)
[2023-12-31] MEDS: Ketorolac 30 MG/ML SDV IVPUSH ONE (21:58)
[2023-12-31 23:34] VITALS: BP 164/99; PULSE 102
== END 2023-12-31 23:33 | disposition home or self-care (01) ==
LOC: MW.ED 21:26
DX: U07.1 COVID-19 (principal); I10 Essential (primary) hypertension; E11.9 Type 2 diabetes mellitus without complications; E03.9 Hypothyroidism, unspecified; Z79.84 Long term (current) use of oral hypoglycemic drugs; Z79.890 Hormone replacement therapy; Z79.899 Other long term (current) drug therapy
CPT/HCPCS: 87635; 96374; 99284; J1885; J7030; U0002

== ENCOUNTER 2024-02-11 14:33 | Emergency (ER) | payer BC ==
[2024-02-11] MEDS ORDERED: Sodium Chloride 0.9% 10 ML Syringe FLUSH PRN (14:38)
[2024-02-11] MEDS ORDERED: Sodium Chloride 0.9% 2.5 ML Syringe FLUSH PRN (14:38)
[2024-02-11] MEDS: Aspirin 81 MG Tab.Chew PO ONE (14:59)
[2024-02-11] MEDS: Sodium Chloride 0.9% 1,000 ML IV ONE (14:59)
[2024-02-11] MEDS: Ondansetron 4 MG/2 ML SDV IVPUSH ONE ×2 (15:19→17:45)
[2024-02-11] MEDS: Morphine 2 MG/ML SYRINGE IVPUSH ONE (15:19)
[2024-02-11] MEDS: Alum Hydrox/Mag Hydrox/Simeth 15 ML, Lidocaine 2% 5 ML PO ONE (15:25)
[2024-02-11] MEDS: Ketorolac 30 MG/ML SDV IVPUSH ONE (15:25)
[2024-02-11 16:58] LABS: BASOPHILS ABSOLUTE AUTO 0.07 K/uL (0.00-0.20); BASOPHILS PERCENT AUTO 0.8 % (0.0-1.0); EOSINOPHILS ABSOLUTE AUTO 0.34 K/uL (0.00-0.45); HEMATOCRIT 37.6 % (37.0-47.0); IMMATURE GRAN ABSOLUTE AUTO 0.02 K/uL (0.00-0.05); IMMATURE GRAN PERCENT AUTO 0.2 % (0.0-0.4); LYMPHOCYTES ABSOLUTE AUTO 2.42 K/uL (1.00-4.80); LYMPHOCYTES PERCENT AUTO 28.7 % (24.0-44.0); MEAN CORPUSCULAR HEMOGLOBIN 33.3 pg (28.0-32.0); MEAN CORPUSCULAR HGB CONC 34.6 g/dL (32.0-36.0); MEAN CORPUSCULAR VOLUME 96.4 fL (83.0-99.0); MEAN PLATELET VOLUME 9.9 fL (9.4-12.3); MONOCYTES ABSOLUTE AUTO 0.58 K/uL (0.00-0.80); MONOCYTES PERCENT AUTO 6.9 % (0.0-8.0); NEUTROPHILS ABSOLUTE AUTO 5.01 K/uL (1.80-7.70); NEUTROPHILS PERCENT AUTO 59.4 % (41.0-71.0); PLATELET COUNT,PLT 257 K/uL (150-400); WHITE BLOOD CELL COUNT,WBC 8.44 K/uL (3.9-11.3)
[2024-02-11] MEDS: Acetaminophen 500 MG Tab PO ONE (17:29)
[2024-02-11 17:39] LABS: ALBUMIN 3.5 g/dL (3.4-5.0); BILIRUBIN TOTAL 0.2 mg/dL (0.2-1.0); CALCIUM 9.8 mg/dL (8.5-10.1); CARBON DIOXIDE,CO2 31.5 mmol/L (21.0-32.0); CREATININE 0.8 mg/dL (0.6-1.0); EST CRCL DRUG DOSING (CG) 76.54 mL/min; POTASSIUM,K 3.5 mmol/L (3.5-5.1); TSH ULTRASENSITIVE 0.72 uIU/mL (0.36-3.74)
[2024-02-11 20:20] LABS: APPEARANCE,URINE SLT CLOUDY; BILIRUBIN,URINE NEGATIVE (NEGATIVE); COLOR,URINE YELLOW; GLUCOSE,URINE NEGATIVE (NEGATIVE); KETONES,URINE NEGATIVE (NEGATIVE); LEUKOCYTE ESTERASE,URINE NEGATIVE (NEGATIVE); NITRITE,URINE NEGATIVE (NEGATIVE); OCCULT BLOOD,URINE LARGE (NEGATIVE); PROTEIN,URINE NEGATIVE (NEGATIVE); UROBILINOGEN,URINE 0.2 EU/dL (<2.0)
[2024-02-11 20:32] LABS: RBC,URINE 46-50 (0-2/HPF); WBC,URINE 0-2 (0-5/HPF)
[2024-02-11 20:33] LABS: BACTERIA,URINE FEW (NEGATIVE); EPITHELIAL CELLS,URINE FEW (NONE-FEW); MUCUS,URINE FEW (NONE-MOD)
[2024-02-11 20:55] VITALS: BP 133/80; PULSE 94
== END 2024-02-11 20:56 | disposition home or self-care (01) ==
LOC: MW.ED 14:33
DX: R07.9 Chest pain, unspecified (principal); I10 Essential (primary) hypertension; E11.9 Type 2 diabetes mellitus without complications; E03.9 Hypothyroidism, unspecified; Z79.84 Long term (current) use of oral hypoglycemic drugs; Z75.8 Other problems related to medical facilities and other health care; Z79.890 Hormone replacement therapy; Z79.899 Other long term (current) drug therapy
CPT/HCPCS: 36415; 71045; 80053; 81001; 83880; 84443; 84484; 85025; 93005; 96361; 96374; 96375; 99285; A9270; J1885; J2405; J7030

== ENCOUNTER 2024-05-24 04:46 | Emergency (ER) | payer BC ==
[2024-05-24] MEDS: Sodium Chloride 0.9% 1,000 ML IV ONE (05:27)
[2024-05-24] MEDS: Ondansetron 4 MG/2 ML SDV IVPUSH ONE (05:27)
[2024-05-24] MEDS: Ketorolac 30 MG/ML SDV IVPUSH ONE (05:28)
[2024-05-24] MEDS: Morphine 4 MG/ML Syringe IVPUSH ONE (05:29)
[2024-05-24] MEDS: Sodium Chloride 0.9% 10 ML Syringe FLUSH PRN (05:30)
[2024-05-24] MEDS: Iopamidol 755 MG/ML 500 ML Multipack Bottle IVPUSH ONE (05:45)
[2024-05-24 05:51] LABS: BASOPHILS ABSOLUTE AUTO 0.05 K/uL (0.00-0.20); BASOPHILS PERCENT AUTO 0.6 % (0.0-1.0); EOSINOPHILS ABSOLUTE AUTO 0.32 K/uL (0.00-0.45); HEMATOCRIT 40.6 % (37.0-47.0); HEMOGLOBIN 14.2 g/dL (12.0-16.0); IMMATURE GRAN ABSOLUTE AUTO 0.04 K/uL (0.00-0.05); IMMATURE GRAN PERCENT AUTO 0.5 % (0.0-0.4); LYMPHOCYTES ABSOLUTE AUTO 2.56 K/uL (1.00-4.80); LYMPHOCYTES PERCENT AUTO 32.3 % (24.0-44.0); MEAN CORPUSCULAR HEMOGLOBIN 33.1 pg (28.0-32.0); MEAN CORPUSCULAR VOLUME 94.6 fL (83.0-99.0); MEAN PLATELET VOLUME 10.2 fL (9.4-12.3); MONOCYTES ABSOLUTE AUTO 0.59 K/uL (0.00-0.80); MONOCYTES PERCENT AUTO 7.4 % (0.0-8.0); NEUTROPHILS ABSOLUTE AUTO 4.36 K/uL (1.80-7.70); NEUTROPHILS PERCENT AUTO 55.2 % (41.0-71.0); PLATELET COUNT,PLT 290 K/uL (150-400); RED BLOOD CELL COUNT 4.29 M/uL (4.10-5.30); WHITE BLOOD CELL COUNT,WBC 7.92 K/uL (3.9-11.3)
[2024-05-24 06:09] LABS: APPEARANCE,URINE SLT CLOUDY; BILIRUBIN,URINE NEGATIVE (NEGATIVE); COLOR,URINE YELLOW; GLUCOSE,URINE NEGATIVE (NEGATIVE); KETONES,URINE NEGATIVE (NEGATIVE); LEUKOCYTE ESTERASE,URINE MODERATE (NEGATIVE); NITRITE,URINE NEGATIVE (NEGATIVE); OCCULT BLOOD,URINE NEGATIVE (NEGATIVE); PROTEIN,URINE TRACE mg/dL (NEGATIVE)
[2024-05-24 06:24] LABS: AMORPHOUS SEDIMENT,URINE FEW (NEGATIVE); BACTERIA,URINE FEW (NEGATIVE); EPITHELIAL CELLS,URINE MANY (NONE-FEW); MUCUS,URINE MANY (NONE-MOD); RBC,URINE 0-3 (0-2/HPF); WBC,URINE 20-34 (0-5/HPF)
[2024-05-24 06:29] LABS: ALBUMIN 3.8 g/dL (3.4-5.0); BILIRUBIN TOTAL 0.5 mg/dL (0.2-1.0); CALCIUM 9.6 mg/dL (8.5-10.1); CARBON DIOXIDE,CO2 28.4 mmol/L (21.0-32.0); CREATININE 0.8 mg/dL (0.6-1.0); EST CRCL DRUG DOSING (CG) 76.54 mL/min; POTASSIUM,K 3.6 mmol/L (3.5-5.1); PROTEIN TOTAL,TP 7.7 g/dL (6.4-8.2)
[2024-05-24] MEDS: cefTRIAXone 2 GM in Sodium Chloride 0.9% 50 ML IV ONE (06:33)
[2024-05-24 07:04] VITALS: BP 113/67; PULSE 64
== END 2024-05-24 07:03 | disposition home or self-care (01) ==
LOC: MW.ED 04:46
DX: N39.0 Urinary tract infection, site not specified (principal); M54.50 Low back pain, unspecified; R94.5 Abnormal results of liver function studies; R11.0 Nausea; I10 Essential (primary) hypertension; E11.9 Type 2 diabetes mellitus without complications; E03.9 Hypothyroidism, unspecified; Z96.659 Presence of unspecified artificial knee joint; Z79.84 Long term (current) use of oral hypoglycemic drugs; Z79.890 Hormone replacement therapy; Z79.899 Other long term (current) drug therapy
CPT/HCPCS: 36415; 74177; 80053; 81001; 81025; 83605; 83690; 85025; 96361; 96365; 96375; 99284; J0696; J1885; J2270; J2405; J3490; J7030; Q9967

== ENCOUNTER 2024-07-06 19:13 | Emergency (ER) | payer BC ==
[2024-07-06 19:53] LABS: BASOPHILS ABSOLUTE AUTO 0.07 K/uL (0.00-0.20); BASOPHILS PERCENT AUTO 0.7 % (0.0-1.0); EOSINOPHILS ABSOLUTE AUTO 0.27 K/uL (0.00-0.45); EOSINOPHILS PERCENT AUTO 2.6 % (0.0-6.0); HEMATOCRIT 40.3 % (37.0-47.0); HEMOGLOBIN 14.5 g/dL (12.0-16.0); IMMATURE GRAN ABSOLUTE AUTO 0.05 K/uL (0.00-0.05); IMMATURE GRAN PERCENT AUTO 0.5 % (0.0-0.4); LYMPHOCYTES ABSOLUTE AUTO 2.79 K/uL (1.00-4.80); LYMPHOCYTES PERCENT AUTO 26.9 % (24.0-44.0); MEAN CORPUSCULAR HEMOGLOBIN 33.4 pg (28.0-32.0); MEAN CORPUSCULAR VOLUME 92.9 fL (83.0-99.0); MEAN PLATELET VOLUME 9.8 fL (9.4-12.3); MONOCYTES ABSOLUTE AUTO 0.52 K/uL (0.00-0.80); NEUTROPHILS ABSOLUTE AUTO 6.67 K/uL (1.80-7.70); NEUTROPHILS PERCENT AUTO 64.3 % (41.0-71.0); PLATELET COUNT,PLT 322 K/uL (150-400); RED BLOOD CELL COUNT 4.34 M/uL (4.10-5.30); WHITE BLOOD CELL COUNT,WBC 10.37 K/uL (3.9-11.3)
[2024-07-06] MEDS: Alum Hydrox/Mag Hydrox/Simeth 15 ML, Lidocaine 2% 5 ML PO ONE (20:02)
[2024-07-06 20:09] LABS: INR 0.97 (0.86-1.11)
[2024-07-06 20:30] LABS: ALBUMIN 3.9 g/dL (3.4-5.0); BILIRUBIN TOTAL 0.2 mg/dL (0.2-1.0); CALCIUM 9.5 mg/dL (8.5-10.1); CARBON DIOXIDE,CO2 23.3 mmol/L (21.0-32.0); CREATININE 0.9 mg/dL (0.6-1.0); EST CRCL DRUG DOSING (CG) 68.04 mL/min; MAGNESIUM 1.7 mg/dL (1.8-2.4); POTASSIUM,K 3.7 mmol/L (3.5-5.1); PROTEIN TOTAL,TP 7.8 g/dL (6.4-8.2)
[2024-07-06 20:49] VITALS: PULSE 93
[2024-07-06 22:07] VITALS: BP 134/81
== END 2024-07-06 22:06 | disposition home or self-care (01) ==
LOC: MW.ED 19:13
DX: R07.89 Other chest pain (principal); R94.6 Abnormal results of thyroid function studies; I10 Essential (primary) hypertension; E11.9 Type 2 diabetes mellitus without complications; E03.9 Hypothyroidism, unspecified; Z79.899 Other long term (current) drug therapy; Z79.84 Long term (current) use of oral hypoglycemic drugs
CPT/HCPCS: 36415; 71045; 80053; 83735; 83880; 84443; 84484; 85025; 85610; 87428; 93005; 99285; A9270; 93010; 99283

== ENCOUNTER 2024-10-02 03:53 | Emergency (ER) | payer BC ==
[2024-10-02 04:14] LABS: APPEARANCE,URINE CLEAR; BILIRUBIN,URINE NEGATIVE (NEGATIVE); COLOR,URINE YELLOW; GLUCOSE,URINE NEGATIVE (NEGATIVE); KETONES,URINE NEGATIVE (NEGATIVE); LEUKOCYTE ESTERASE,URINE NEGATIVE (NEGATIVE); NITRITE,URINE NEGATIVE (NEGATIVE); OCCULT BLOOD,URINE NEGATIVE (NEGATIVE); PROTEIN,URINE NEGATIVE (NEGATIVE); UROBILINOGEN,URINE 0.2 EU/dL (<2.0)
[2024-10-02 04:51] LABS: BASOPHILS ABSOLUTE AUTO 0.07 K/uL (0.00-0.20); BASOPHILS PERCENT AUTO 0.9 % (0.0-1.0); EOSINOPHILS ABSOLUTE AUTO 0.32 K/uL (0.00-0.45); EOSINOPHILS PERCENT AUTO 4.2 % (0.0-6.0); HEMATOCRIT 37.6 % (37.0-47.0); HEMOGLOBIN 12.9 g/dL (12.0-16.0); IMMATURE GRAN ABSOLUTE AUTO 0.05 K/uL (0.00-0.05); IMMATURE GRAN PERCENT AUTO 0.7 % (0.0-0.4); LYMPHOCYTES ABSOLUTE AUTO 2.43 K/uL (1.00-4.80); LYMPHOCYTES PERCENT AUTO 31.6 % (24.0-44.0); MEAN CORPUSCULAR HEMOGLOBIN 33.1 pg (28.0-32.0); MEAN CORPUSCULAR HGB CONC 34.3 g/dL (32.0-36.0); MEAN CORPUSCULAR VOLUME 96.4 fL (83.0-99.0); MEAN PLATELET VOLUME 9.8 fL (9.4-12.3); MONOCYTES ABSOLUTE AUTO 0.55 K/uL (0.00-0.80); MONOCYTES PERCENT AUTO 7.2 % (0.0-8.0); NEUTROPHILS ABSOLUTE AUTO 4.26 K/uL (1.80-7.70); NEUTROPHILS PERCENT AUTO 55.4 % (41.0-71.0); PLATELET COUNT,PLT 273 K/uL (150-400); WHITE BLOOD CELL COUNT,WBC 7.68 K/uL (3.9-11.3)
[2024-10-02 05:24] LABS: ALBUMIN 3.3 g/dL (3.4-5.0); BILIRUBIN TOTAL 0.2 mg/dL (0.2-1.0); CALCIUM 8.6 mg/dL (8.5-10.1); CARBON DIOXIDE,CO2 26.4 mmol/L (21.0-32.0); CREATININE 0.8 mg/dL (0.6-1.0); EST CRCL DRUG DOSING (CG) 73.46 mL/min; PROTEIN TOTAL,TP 6.7 g/dL (6.4-8.2)
[2024-10-02 05:53] VITALS: BP 136/82; PULSE 72
== END 2024-10-02 05:52 | disposition home or self-care (01) ==
LOC: MW.ED 03:53
DX: N83.201 Unspecified ovarian cyst, right side (principal); I10 Essential (primary) hypertension; E11.9 Type 2 diabetes mellitus without complications; E03.9 Hypothyroidism, unspecified; Z79.899 Other long term (current) drug therapy; Z79.82 Long term (current) use of aspirin; Z79.890 Hormone replacement therapy
CPT/HCPCS: 36415; 74176; 74176-26; 80053; 81003; 85025; 99283; 99284

== ENCOUNTER 2024-12-08 20:31 | Emergency (ER) | payer BC, MEDICAID ==
[2024-12-08 22:05] VITALS: BP 136/80; PULSE 68
== END 2024-12-08 22:06 | disposition home or self-care (01) ==
LOC: MW.ED 20:31
DX: S63.612A Unspecified sprain of right middle finger, initial encounter (principal); I10 Essential (primary) hypertension; E11.9 Type 2 diabetes mellitus without complications; E03.9 Hypothyroidism, unspecified; Z79.899 Other long term (current) drug therapy; Z79.84 Long term (current) use of oral hypoglycemic drugs; Z79.890 Hormone replacement therapy; X50.9XXA Other and unspecified overexertion or strenuous movements or postures, initial encounter; Y92.831 Amusement park as the place of occurrence of the external cause
CPT/HCPCS: 73120; 99283; A9270

== ENCOUNTER 2025-02-01 14:59 | Emergency (ER) | payer MEDICAID ==
[2025-02-01] MEDS ORDERED: Ketorolac 30 MG/ML SDV IM ONE (15:35)
[2025-02-01 16:08] VITALS: BP 135/100; PULSE 93
== END 2025-02-01 15:44 | disposition home or self-care (01) ==
LOC: MW.ED 14:59
DX: K04.7 Periapical abscess without sinus (principal); I10 Essential (primary) hypertension; E03.9 Hypothyroidism, unspecified; E11.9 Type 2 diabetes mellitus without complications; Z79.899 Other long term (current) drug therapy; Z79.890 Hormone replacement therapy
CPT/HCPCS: 99283